=== PATIENT | male | born 1950 | race Caucasian/White ===

== ENCOUNTER 2017-05-15 18:37 | Emergency (ER) | payer MEDICARE, OTHER ==
[2017-05-15] MEDS ORDERED: Hydromorphone 1 mg/ml Ampule IM ONE (19:40)
[2017-05-15] MEDS ORDERED: Phenergan 25 MG INJ IM ONE (19:41)
[2017-05-15] MEDS ORDERED: Phenergan 25 MG INJ ONE (19:51)
[2017-05-15] MEDS ORDERED: Hydromorphone 1 mg/ml Ampule ONE (19:51)
[2017-05-15] MEDS ORDERED: DUONEB 0.5-3 MG/3 ml Neb IH ONE ×2 (21:08→21:17)
--- NOTE | 2017-05-15 21:31 | ERPHSYRPT ---
- History of Present Illness Time Seen by Provider: 05/15/17 19:20 Source: patient Exam Limitations: clinical condition Patient Subjective Stated Complaint: fell into bathtub at 1400 today..states had been drinking.. pain in right ribs and abrasion left elbow. denies LOC or hitting heqad Triage Nursing Assessment: alert and oriented, fell into bathtub at 1400 today. stqaets has been drinking aabout 12 beers. pain on palpation to right ribs.pain with breathing. lungs clear bilaterally. abrasion to left elbow.. ADY. Moss.. + RADIAL PULSE PREZSENT TO LEFT UPPER EXTREMITY. Physician History: PATIENT FELL INTO BATHROOM AT 2PM TODAY STRUCK THE RIGHT SIDE OF CHEST AGAINST BATHTUB SUSTAINED INJURY TO RIGHT SIDE OF CHEST. HAS SEVERE PAIN, WORSE UPON MOTION OF TORSO. DENIES ASSOCIATED HEAD, NECK OR BACK INJURY. LATER ADMITS TO DRINKING 12 BEERS. Occurred: this afternoon Reason for Fall: slipped Injuries/Pain Location: chest Loss of Consciousness: no loss of consciousness Severity of Pain-Max: severe Severity of Pain-Current: severe Modifying Factors: Improves With: movement Associated Symptoms (Fall): chest pain Allergies/Adverse Reactions: Penicillins Allergy (Intermediate, Verified 09/28/13 09:34) Hives Home Medications: Levothyroxine Sodium 137 mcg PO DAILY 09/28/13 [History] PANTOPRAZOLE 40 mg Tablet [Protonix 40MG Tablet] 40 mg PO DAILY 09/28/13 [ History] Pravastatin Sodium 20 mg PO HS 09/28/13 [History] Famotidine 20 mg [Pepcid 20 MG] 20 mg PO BID 11/08/13 [History] Folic Acid 1 mg PO DAILY 11/08/13 [History] Prednisone 10 mg [Deltasone 10 mg] 10 mg PO DAILY 11/08/13 [History] Valsartan [Diovan] 160 mg PO DAILY 11/08/13 [History] Naproxen Sodium 220 mg [Aleve 220 MG] 2 tab PO BID PRN 11/11/13 [History] Hx Tetanus, Diphtheria Vaccination/Date Given: No Hx Influenza Vaccination/Date Given: No Hx Pneumococcal Vaccination/Date Given: No Immunizations Up to Date: No (refuses tetnus shots) - Review of Systems Constitutional: No Fever, No Chills Eyes: No Symptoms Ears, Nose, & Throat: No Symptoms Respiratory: Other (CHEST PAIN) Cardiac: Chest Pain Abdominal/Gastrointestinal: No Abdominal Pain, No Nausea, No Vomiting, No Diarrhea Genitourinary Symptoms: No Dysuria Musculoskeletal: No Back Pain, No Neck Pain - Past Medical History Pertinent Past Medical History: Yes Neurological History: No Pertinent History ENT History: No Pertinent History Cardiac History: High Cholesterol, Hypertension Respiratory History: COPD Endocrine Medical History: Hypothyroidism Musculoskeletal History: Rheumatoid Arthritis GI Medical History: GERD History: No Pertinent History Psycho-Social History: No Pertinent History Male Reproductive Disorders: No Pertinent History Other Medical History: PT DENIES HAVING ANY HEALTH PROBLEMS - Past Surgical History Past Surgical History: Yes Neuro Surgical History: No Pertinent History Cardiac: No Pertinent History Respiratory: No Pertinent History Gastrointestinal: No Pertinent History Genitourinary: No Pertinent History Musculoskeletal: Orthopedic Surgery Male Surgical History: No Pertinent History Other Surgical History: RIGHT KNEE FIX 25 YRS AGO. Left foot surgery - Social History Smoking Status: Never smoker How long have you smoked: 45 years Exposure to second hand smoke: No Drug Use: none Patient Lives Alone: No - Nursing Vital Signs Nursing Vital Signs: Initial Vital Signs Temperature 98.8 F 05/15/17 19:13 Pulse Rate 76 05/15/17 19:13 Respiratory Rate 20 05/15/17 19:13 Blood Pressure 158/99 05/15/17 19:13 O2 Sat by Pulse Oximetry 93 L 05/15/17 19:13 Pain Scale Pain Intensity 8 - Peter Coma Score Best Eye Response ([place]): (4) open spontaneously Best Verbal Response (Peter): (5) oriented Best Motor Response (Peter): (6) obeys commands Peter Total: 15 - Physical Exam General Appearance: mild distress Head Injury: no evidence of injury Eye Exam: PERRL/EOMI ENT Exam: airway nml Neck Exam: supple, trachea midline, full range of motion, other (NONTENDER) Respiratory/Chest Exam: chest tenderness, normal breath sounds, other (MARKED TENDERNESS RIGHT LATERAL RIBS 5 TH TO 10TH , NO CREPITUS OR ECCHYMSOSI) Cardiovascular Exam: normal heart sounds Gastrointestinal Exam: soft, normal bowel sounds (NONTENDER) SpO2: 92 Oxygen Delivery: Room Air - Radiology Exams Right Ribs X-ray Interpretation: Interpreted by me (NO EVIDENCE OF FRACTURE) Chest X-ray Interpretation: Interpreted by me, Negative, No Pneumothorax Ordered Tests: Active Orders 24 hr Category Date Time Status CHEST 2 VIEWS (PA AND LAT) Stat Exams 05/15/17 19:40 Taken RIBS UNILATERAL Stat Exams 05/15/17 19:38 Taken Incentive Spirometry Assessmen QID RT 05/15/17 22:21 Completed Respiratory Nebulizer STAT RT 05/15/17 21:08 Completed Medication Summary Discontinued Medications Generic Name Dose Route Start Last Admin Trade Name Freq PRN Reason Stop Dose Admin Albuterol/Ipratropium 3 ml 05/15/17 21:08 05/15/17 21:20 Duoneb 0.5-3 Mg/3 Ml Neb IH 05/15/17 21:09 3 ml STAT ONE Administration Albuterol/Ipratropium Confirm 05/15/17 21:17 Duoneb 0.5-3 Mg/3 Ml Neb Administered 05/15/17 21:18 Dose 3 ml IH .STK-MED ONE Hydromorphone HCl 2 mg 05/15/17 19:40 05/15/17 19:55 Hydromorphone 1 Mg/Ml Ampule IM 05/15/17 19:41 2 mg STAT ONE Administration Hydromorphone HCl Confirm 05/15/17 19:51 Hydromorphone 1 Mg/Ml Ampule Administered 05/15/17 19:52 Dose 2 mg .ROUTE .STK-MED ONE Promethazine HCl 12.5 mg 05/15/17 19:41 05/15/17 19:54 Phenergan 25 Mg Inj IM 05/15/17 19:42 12.5 mg STAT ONE Administration Promethazine HCl Confirm 05/15/17 19:51 Phenergan 25 Mg Inj Administered 05/15/17 19:52 Dose 25 mg .ROUTE .STK-MED ONE - Progress Progress Note: 05/15/17 23:10 ADMINISTERED DILAUDID 2MG/PHENERGAN 12.5MG IM - Departure Time of Disposition: 23:10 Departure Disposition: Home Clinical Impression: RIGHT CHEST WALL CONTUSIONS Condition: Stable Critical Care Time: No Referrals: ASHIA LUNDBERG MD [Primary Care Provider] - Additional Instructions: USE YOUR INCENTIVE SPIROMETRY EVERY 4 HOURS FOR AWAKE, NORCO 10/325 EVERY 4 HOURS FOR PAIN. RETURN TO EMERGENCY FOR INCREASING SHORTNESS OF BREATH OR PAIN DISCOMFORT. Prescriptions: Hydrocodone/APAP 10/325 mg [[place] 10/325 MG Tablet] 1 tab PO Q6H PRN PRN # 15 tablet PRN Reason: Pain
[2017-05-15] MEDS ORDERED: NORCO 5/325 MG PO ONE (23:15)
[2017-05-15] MEDS ORDERED: NORCO 5/325 MG ONE (23:18)
[2017-05-15 23:31] VITALS: BP 140/76; PULSE 74; O2SAT 88
--- NOTE | 2017-05-16 09:18 | XRAY ---
Indication: Right-sided chest pain following fall. Comparison: October 16, 2013. PA/lateral chest again hyperinflated and clear with incidental scattered calcified granulomas. Minimal left base fibrosis/scarring. Heart is not enlarged. Bony thorax intact again with minimal degenerative changes. Impression: Nonacute hyperinflated chest with chronic features.
--- NOTE | 2017-05-16 09:18 | XRAY ---
Indication: Pain following fall. Comparison: None 2 views of the right ribs demonstrates scattered calcified pulmonary/hilar granulomas. No other bony, articular, or soft tissue abnormalities.
== END 2017-05-15 23:30 ==
LOC: ED 18:37
DX: S20.211A Contusion of right front wall of thorax, initial encounter (principal); W18.2XXA Fall in (into) shower or empty bathtub, initial encounter; Y93.E1 Activity, personal bathing and showering; S50.312A Abrasion of left elbow, initial encounter; R07.81 Pleurodynia; Z79.899 Other long term (current) drug therapy
CPT/HCPCS: 71020; 71100; 94640; 96372; 99283; 99284; J1170; J2550; A9270-GY

== ENCOUNTER 2018-02-22 06:40 | Observation (INO) | payer MEDICARE, OTHER ==
[2018-02-22] MEDS ORDERED: BABY ASPIRIN 81 MG CHEW PO ONE (06:43)
--- NOTE | 2018-02-22 06:54 | ERPHSYRPT ---
<JAROD DANG - Last Filed: 02/22/18 07:02> - History of Present Illness Time Seen by Provider: 02/22/18 06:45 Historian: patient Exam Limitations: no limitations Physician History: 68 y/o hypothyroid white male with h/o htn, copd, high cholesterol and gerd presents with 4 day h/o nonradiating central substernal cp described as a tightness and pressure. told he has had a heart attack in the past. pain not improved and worsening. Timing/Duration: day(s) (4) Activities at Onset: other (routine daily activities) Quality: fullness, pressure, tightness Location: substernal, central Chest Pain Radiation: no radiation Severity of Pain-Max: moderate Severity of Pain-Current: mild (mild to mod) Modifying Factors: Improves With: nothing Associated Symptoms: nausea, No vomiting, No palpitations, No abdominal pain, No shortness of breath, No cough Prior Chest Pain/Cardiac Workup: no prior cardiac workup Nitro Today/Relief: no nitro taken today Aspirin Treatment Today: no aspirin today Allergies/Adverse Reactions: Penicillins Allergy (Intermediate, Verified 09/28/13 09:34) Hives Home Medications: Levothyroxine Sodium 100 mcg PO DAILY 09/28/13 [History] Pravastatin Sodium 40 mg PO HS 09/28/13 [History] Alprazolam 0.5 mg [xanAX 0.5 MG] 0.5 mg PO DAILY 02/22/18 [History] Metoprolol Succinate 25 mg Xl* [Toprol-Xl 25MG Tablets] 12.5 mg PO DAILY 09/10 [History] Tadalafil [Cialis] 5 mg PO DAILY 02/22/18 [History] Hx Tetanus, Diphtheria Vaccination/Date Given: No Hx Influenza Vaccination/Date Given: No Hx Pneumococcal Vaccination/Date Given: No - Review of Systems Constitutional: No Symptoms, No Fever, No Chills Eyes: No Symptoms Ears, Nose, & Throat: No Symptoms, Ear Pain Respiratory: No Symptoms, No Cough, No Dyspnea, No Dyspnea on Exertion (JOHN), No Stridor, No Wheezing Cardiac: Chest Pain, No Palpitations, No Syncope Abdominal/Gastrointestinal: Nausea, No Abdominal Pain, No Vomiting, No Diarrhea Genitourinary Symptoms: No Symptoms, No Dysuria, No Frequency, No Hematuria Musculoskeletal: No Symptoms Skin: No Symptoms Neurological: No Symptoms, No Dizziness, No Focal Weakness, No Gait Changes Psychological: No Symptoms Endocrine: No Symptoms Hematologic/Lymphatic: No Symptoms Immunological/Allergic: No Symptoms All Other Systems: Reviewed and Negative - Past Medical History Pertinent Past Medical History: Yes Neurological History: No Pertinent History ENT History: No Pertinent History Cardiac History: High Cholesterol, Hypertension Respiratory History: COPD Endocrine Medical History: Hypothyroidism Musculoskeletal History: Rheumatoid Arthritis GI Medical History: GERD History: No Pertinent History Psycho-Social History: No Pertinent History Male Reproductive Disorders: No Pertinent History Other Medical History: PT DENIES HAVING ANY HEALTH PROBLEMS - Past Surgical History Past Surgical History: Yes Neuro Surgical History: No Pertinent History Cardiac: No Pertinent History Respiratory: No Pertinent History Gastrointestinal: No Pertinent History Genitourinary: No Pertinent History Musculoskeletal: Orthopedic Surgery Male Surgical History: No Pertinent History Other Surgical History: RIGHT KNEE FIX 25 YRS AGO. Left foot surgery - Social History Smoking Status: Never smoker How long have you smoked: 45 years Exposure to second hand smoke: No Drug Use: none Patient Lives Alone: No - Nursing Vital Signs Nursing Vital Signs: Initial Vital Signs Temperature 97.5 F 02/22/18 06:41 Pulse Rate 78 02/22/18 06:41 Respiratory Rate 20 02/22/18 06:41 Blood Pressure 174/84 02/22/18 06:41 O2 Sat by Pulse Oximetry 97 02/22/18 06:41 Pain Scale Pain Intensity 2 - Physical Exam General Appearance: mild distress, alert, anxiety Eye Exam: PERRL/EOMI, eyes nml inspection Ears, Nose, Throat Exam: normal ENT inspection Neck Exam: normal inspection, non-tender, supple, full range of motion Respiratory Exam: normal breath sounds, chest tenderness, lungs clear, airway intact, No respiratory distress, No diminished breath sounds, No wheezing, No stridor Cardiovascular Exam: regular rate/rhythm, normal heart sounds, normal peripheral pulses Gastrointestinal/Abdomen Exam: soft, normal bowel sounds, No tenderness, No guarding, No rebound Back Exam: normal inspection, normal range of motion, No vertebral tenderness Extremity Exam: normal inspection, normal range of motion, pelvis stable Neurologic Exam: alert, oriented x 3, cooperative, i&c tech II-XII nml as tested, normal mood/affect, nml cerebellar function, nml station & gait Skin Exam: normal color, warm, dry Lymphatic Exam: No adenopathy SpO2 Interpretation: normal Oxygen Delivery: Room Air - Course Nursing assessment & vital signs reviewed: Yes EKG Interpreted by Me: RATE (75), Sinus Rhythm, NORMAL AXIS, NORMAL INTERVALS, NORMAL QRS, NORMAL ST-T Ordered Tests: Active Orders 24 hr Category Date Time Status Extender STAT Care 02/22/18 06:44 Active EKG-ER Only STAT Care 02/22/18 06:43 Active IV Insertion STAT Care 02/22/18 06:43 Active Oxygen-ED Only NASAL CANNULA 2 lpm Care 02/22/18 06:43 Active Pulse Oximetry (ED) STAT Care 02/22/18 06:43 Active CHEST 1 VIEW (PORTABLE) Stat Exams 02/22/18 06:44 Completed AMYLASE Stat Lab 02/22/18 07:25 Completed CBC W DIFF Stat Lab 02/22/18 06:55 Completed CMP Stat Lab 02/22/18 06:55 Completed LIPASE Stat Lab 02/22/18 07:25 Completed Manual Differential NC Stat Lab 02/22/18 06:55 Completed NT PRO BNP Stat Lab 02/22/18 06:55 Completed PROTIME WITH INR Stat Lab 02/22/18 06:55 Completed TROPONIN Q3H Lab 02/22/18 06:55 Completed TROPONIN Q3H Lab 02/22/18 09:45 Ordered TROPONIN Q3H Lab 02/22/18 12:45 Ordered TROPONIN Q3H Lab 02/22/18 15:45 Ordered TROPONIN Q3H Lab 02/22/18 18:45 Ordered Transfer Order Routine Transfer 02/22/18 Ordered Medication Summary Discontinued Medications Generic Name Dose Route Start Last Admin Trade Name Josiane PRN Reason Stop Dose Admin Aspirin 324 mg 02/22/18 06:43 02/22/18 07:01 Baby Aspirin 81 Mg Chew PO 02/22/18 06:44 324 mg STAT ONE Administration Aspirin Confirm 02/22/18 06:58 Baby Aspirin 81 Mg Chew Administered 02/22/18 06:59 Dose 243 mg .ROUTE .STK-MED ONE Nitroglycerin 0.4 mg 02/22/18 06:57 02/22/18 07:01 Nitrostat 0.4 Mg (Ed) SL 02/22/18 06:58 0.4 mg STAT ONE Administration Nitroglycerin Confirm 08/02/18 06:58 Nitrostat 0.4 Mg (Ed) Administered 02/22/18 06:59 Dose 0.4 mg SL .STK-MED ONE Ondansetron HCl 4 mg 02/22/18 07:25 02/22/18 07:47 Zofran 4 Mg/2 Ml Vial IV 02/22/18 07:26 4 mg STAT ONE Administration Ondansetron HCl Confirm 02/22/18 07:47 Zofran 4 Mg/2 Ml Vial Administered 02/22/18 07:48 Dose 4 mg .ROUTE .STK-MED ONE Lab/Rad Data: Laboratory Result Diagrams 02/22/18 06:55 02/22/18 06:55 Laboratory Results 02/22/18 02/22/18 02/22/18 Range/Units 07:25 06:55 06:55 WBC (4.0-10.5) K/mm3 RBC (4.1-5.6) M/mm3 Hgb (12.5-18.0) gm/dl Hct (42-50) % MCV (78-100) fl MCH (26-32) pg MCHC (32-36) g/dl RDW (11.5-14.0) % Plt Count (150-450) K/mm3 MPV (6-9.5) fl Gran % (36.0-66.0) % Eos # (Auto) (0-0.5) Absolute Lymphs (auto) (1.0-4.6) Absolute Monos (auto) (0.0-1.3) Lymphocytes % (24.0-44.0) % Monocytes % (0.0-12.0) % Eosinophils % (0.00-5.0) % Basophils % (0.0-0.4) % Absolute Granulocytes (1.4-6.9) Segmented Neutrophils (36.-66.) % Lymphocytes (Manual) (24-44) % Monocytes (Manual) (0.0-12.0) % Basophils # (0-0.4) Platelet Estimate (NORMAL) RBC Morphology PT 12.2 (8.83-12.87) SECONDS INR 1.05 (0.8-3.0) Sodium (137-145) mmol/L Potassium (3.5-5.1) mmol/L Chloride (98-107) mmol/L Carbon Dioxide (22-30) mmol/L Anion Gap (5-15) MEQ/L BUN (9-20) mg/dL Creatinine (0.66-1.25) mg/dL Estimated GFR ML/MIN Glucose (74-106) mg/dL Calcium (8.4-10.2) mg/dL Total Bilirubin (0.2-1.3) mg/dL AST (17-59) U/L ALT (0-50) U/L Alkaline Phosphatase (38-126) U/L Troponin I < 0.012 (0.000-0.034) ng/mL NT-Pro-B Natriuret Pep (0-900) pg/mL Serum Total Protein (6.3-8.2) g/dL Albumin (3.5-5.0) g/dL Amylase 70 (30-110) U/L Lipase 84 (23-300) U/L 02/22/18 02/22/18 Range/Units 06:55 06:55 WBC 7.6 (4.0-10.5) K/mm3 RBC 4.69 (4.1-5.6) M/mm3 Hgb 14.9 (12.5-18.0) gm/dl Hct 45.7 (42-50) % MCV 97.4 (78-100) fl MCH 31.8 (26-32) pg MCHC 32.6 (32-36) g/dl RDW 13.6 (11.5-14.0) % Plt Count 303 (150-450) K/mm3 MPV 10.3 H (6-9.5) fl Gran % 64.6 (36.0-66.0) % Eos # (Auto) 0.28 (0-0.5) Absolute Lymphs (auto) 1.68 (1.0-4.6) Absolute Monos (auto) 0.72 (0.0-1.3) Lymphocytes % 22.0 L (24.0-44.0) % Monocytes % 9.4 (0.0-12.0) % Eosinophils % 3.7 (0.00-5.0) % Basophils % 0.3 (0.0-0.4) % Absolute Granulocytes 4.93 (1.4-6.9) Segmented Neutrophils 76 H (36.-66.) % Lymphocytes (Manual) 17 L (24-44) % Monocytes (Manual) 7 (0.0-12.0) % Basophils # 0.02 (0-0.4) Platelet Estimate NORMAL (NORMAL) RBC Morphology NORMAL PT (8.83-12.87) SECONDS INR (0.8-3.0) Sodium 143 (137-145) mmol/L Potassium 3.7 (3.5-5.1) mmol/L Chloride 106 (98-107) mmol/L Carbon Dioxide 27 (22-30) mmol/L Anion Gap 14.3 (5-15) MEQ/L BUN 12 (9-20) mg/dL Creatinine 1.00 (0.66-1.25) mg/dL Estimated GFR > 60.0 ML/MIN Glucose 111 H (74-106) mg/dL Calcium 9.1 (8.4-10.2) mg/dL Total Bilirubin 1.10 (0.2-1.3) mg/dL AST 19 (17-59) U/L ALT 13 (0-50) U/L Alkaline Phosphatase 68 (38-126) U/L Troponin I (0.000-0.034) ng/mL NT-Pro-B Natriuret Pep 179 (0-900) pg/mL Serum Total Protein 7.1 (6.3-8.2) g/dL Albumin 4.1 (3.5-5.0) g/dL Amylase (30-110) U/L Lipase (23-300) U/L - Progress Progress Note: 02/22/18 07:03 i have discussed pt hx and condition and transferred care to dr kaplan - Departure Clinical Impression: Chest pain, rule out acute myocardial infarction Chest pain Qualifiers: Chest pain type: unspecified Qualified Code(s): R07.9 - Chest pain, unspecified Condition: Fair Referrals: ASHIA LUNDBERG MD [Primary Care Provider] - <YANETH CEDENO - Last Filed: 02/22/18 08:32> - Radiology Exams Chest X-ray Interpretation: Discussed w/ radiologist (chest x-ray: Impression: 1. No airspace infiltrates to suggest pneumonia, heart failure, or other acute cardiopulmonary disease is seen. 2. Hyperinflation of the lungs suggestive of COPD. Also some mild bullous changes within the lung apices right greater than left are suspected 3.scattered bilateral calcified granulomas consistent with old healed granulomatous disease. This appears unchanged.) - Progress Progress: improved Air Movement: fair Progress Note: 02/22/18 07:20 This is a 68-year-old white male with history of hyperlipidemia high blood pressure COPD hypothyroidism rheumatoid arthritis and GERD Patient arrives with complaint of 4 days of nonradiating chest pain tightness in the anterior sternal region he states he's had some nausea, of but no shortness of breath States the pain has been intermittent however this morning he woke up around 5: 30 he felt like he had a pressure on the anterior chest whichhe felt was severe he presented To the emergency room and was initially seen by Dr. Dang patient was given nitroglycerin 2 and given aspirin 324 mg He states he is feeling better he states is not having pain at this time but he is having nausea Past medical history includes hyperlipidemia, high blood pressure, hypothyroidism, rheumatoid arthritis, GERD he states that he has been told by Dr. Vital that he had had a heart attack in the past based on studies he had done. Past surgical history includes right knee surgery left foot surgery, left hand surgery Social history former smoker denies alcohol or tobacco use Physical examination well-developed well-nourished white male he is alert oriented 3 pleasant and cooperative to examination. Head is atraumatic normocephalic. Eyes PERRLA EOMI fundi are unremarkable. Ears TMs are intact bilaterally. Nose clear. Throat clear. Neck supple full range of motion. Lungs clear to auscultation breath sounds equal bilaterally. Heart regular rate and rhythm without murmur. Abdomen soft nontender nondistended positive bowel sounds negative rebound negative hepatosplenomegaly negative masses. Extremities full range of motion pulse equal symmetrical 2 over 4. Neuro cranial nerves II through XII are intact DTRs symmetrical 2 over 4 [place] Coma Scale is 15. Patient's EKG sinus rhythm at 75 bpm normal axis poor anterior R-wave progression no acute ST or T wave changes are noted. Labs including chest x-ray CBC CMP troponin are pending. Will add amylase and lipase. Will give patient Zofran for his nausea. 02/22/18 07:53 Patient's troponin within normal limits chemistry essentially normal CBC essentially normal chest x-ray no acute changes Patient pain-free at this time blood pressure is improved at 138/89. I've discussed the patient's case with Dr. Lundberg will place on observation telemetry diagnosis chest pain rule out [place]. Will obtain serial troponins - Departure Time of Disposition: 07:54 Departure Disposition: Observation Critical Care Time: No
[2018-02-22] MEDS ORDERED: Nitrostat 0.4 MG (ED) SL ONE ×2 (06:57→06:58)
[2018-02-22] MEDS ORDERED: BABY ASPIRIN 81 MG CHEW ONE (06:58)
[2018-02-22 07:02] LABS: BASOPHIL % 0.3 % (0.0-0.4); Basophil (Absolute #) 0.02 (0-0.4); Eosinophil % 3.7 % (0.00-5.0); Eosinophil (Absolute #) 0.28 (0-0.5); Granulocyte Absolute (ANC) 4.93 (1.4-6.9); Granulocytes % 64.6 % (36.0-66.0); Hematocrit 45.7 % (42-50); Hemoglobin 14.9 gm/dl (12.5-18.0); Lymphocyte (Absolute #) 1.68 (1.0-4.6); Mean Cell Volume 97.4 fl (78-100); Mean Corpuscular Hemoglobin 31.8 pg (26-32); Mean Corpuscular Hgb Concent. 32.6 g/dl (32-36); Mean Platelet Volume 10.3 fl (6-9.5); Monocyte (Absolute #) 0.72 (0.0-1.3); Monocytes % 9.4 % (0.0-12.0); Platelet Count 303 K/mm3 (150-450); Red Blood Count 4.69 M/mm3 (4.1-5.6); Red Cell Distribution Width 13.6 % (11.5-14.0); White Blood Count 7.6 K/mm3 (4.0-10.5)
[2018-02-22 07:16] LABS: INR 1.05 (0.8-3.0)
[2018-02-22] MEDS ORDERED: Zofran 4 MG/2 ML VIAL IV ONE (07:25)
[2018-02-22 07:36] LABS: ALBUMIN 4.1 g/dL (3.5-5.0); ALKALINE PHOSPHATASE 68 U/L (38-126); ANION GAP 14.3 MEQ/L (5-15); BLOOD UREA NITROGEN 12 mg/dL (9-20); CHLORIDE 106 mmol/L (98-107); Calcium 9.1 mg/dL (8.4-10.2); Carbon Dioxide 27 mmol/L (22-30); Glucose 111 mg/dL (74-106); NT PRO BNP 179 pg/mL (0-900); Potassium 3.7 mmol/L (3.5-5.1); SGOT/AST 19 U/L (17-59); SGPT/ALT 13 U/L (0-50); SODIUM 143 mmol/L (137-145); Total Protein 7.1 g/dL (6.3-8.2)
[2018-02-22] MEDS ORDERED: Zofran 4 MG/2 ML VIAL ONE (07:47)
[2018-02-22 07:48] LABS: AMYLASE 70 U/L (30-110); LIPASE 84 U/L (23-300)
[2018-02-22 08:01] LABS: Lymphocytes 17 % (24-44); Monocyte 7 % (0.0-12.0); Neutrophils 76 % (36.-66.); Total Cells Counted 100
[2018-02-22 08:02] LABS: Platelet Estimate NORMAL (NORMAL)
--- NOTE | 2018-02-22 08:29 | XRAY ---
Exam: AP portable chest film from 02/22/2018. Comparison: Two-view chest from 05/15/2017. Indication: Onset of chest pain this morning. Findings: The film was obtained in a lordotic projection. There is hyperinflation of the lung arias consistent with COPD. Scattered granulomatous calcifications are seen within the madhavi (right greater than left), subcarinal projection, and both lung bases. The findings are consistent with old healed granulomatous disease. A calcified mildly tortuous descending thoracic aorta is seen. The remainder of the madhavi and mediastinal structures appears unremarkable. Subtle skin folds are seen projected over the peripheral upper lobes. No acute air space infiltrates, vascular congestion, pneumothorax, or pleural effusion is seen. There is a relative paucity of lung markings overlying the lung apices, right greater than left, suggesting some bullous changes. No acute osseous abnormalities are seen. Impression: 1. No air space infiltrates to suggest pneumonia, heart failure, or other acute cardiopulmonary disease is seen. 2. Hyperinflation of the lungs suggestive of COPD. I also suspect some mild bullous changes within the lung apices, right greater than left. Correlate clinically. 3. Scattered bilateral calcified granulomas consistent with old healed granulomatous disease. This appears unchanged.
--- NOTE | 2018-02-22 10:21 | PCM.HP ---
History of Present Illness - Chief Complaint Chief Complaint: chest pain History of Present Illness: is a 68 year old white male with h/o htn, copd, high cholesterol and gerd presents with 4 day h/o nonradiating central substernal cp described as a tightness and pressure. told he has had a heart attack in the past. pain not improved and worsening. Timing/Duration: day(s) (4) Activities at Onset: other (routine daily activities) Quality: fullness, pressure, tightness Location: substernal, central Chest Pain Radiation: no radiation Severity of Pain-Max: moderate Severity of Pain-Current: mild (mild to mod) Modifying Factors: Improves With: nothing Associated Symptoms: nausea, No vomiting, No palpitations, No abdominal pain, No shortness of breath, No cough Prior Chest Pain/Cardiac Workup: no prior cardiac workup Nitro Today/Relief: no nitro taken today - Review of Systems Constitutional: No Fever, No Chills Eyes: No Symptoms Ears, Nose, & Throat: No Symptoms Respiratory: No Cough, No Short Of Breath Cardiac: Chest Pain, No Edema, No Syncope Abdominal/Gastrointestinal: No Abdominal Pain, No Nausea, No Vomiting, No Diarrhea Genitourinary Symptoms: No Dysuria Musculoskeletal: No Back Pain, No Neck Pain Skin: No Rash Neurological: No Dizziness, No Focal Weakness, No Sensory Changes Psychological: No Symptoms Endocrine: No Symptoms Hematologic/Lymphatic: No Symptoms Immunological/Allergic: No Symptoms Medications & Allergies Home Medications: Home Medication List Levothyroxine Sodium 100 mcg PO DAILY 09/28/13 [History Confirmed 02/22/18] Pravastatin Sodium 40 mg PO HS 09/28/13 [History Confirmed 02/22/18] Aspirin 81 mg PO DAILY #30 tablet 09/29/13 [Rx Confirmed 02/22/18] Alprazolam 0.5 mg [xanAX 0.5 MG] 0.5 mg PO HS 02/22/18 [History Confirmed 02/22/18] Metoprolol Succinate 25 mg Xl* [Toprol-Xl 25MG Tablets] 12.5 mg PO DAILY 09/10 [History Confirmed 02/22/18] Tadalafil [Cialis] 5 mg PO DAILY 02/22/18 [History Confirmed 02/22/18] Tofacitinib Citrate [Xeljanz Xr] 11 mg PO DAILY 02/22/18 [History Confirmed 09/10] Allergies/Adverse Reactions: Allergies Allergy/AdvReac Type Severity Reaction Status Date / Time Penicillins Allergy Intermediate Hives Verified 09/28/13 09:34 - Past Medical History Past Medical History: Yes Neurological History: No Pertinent History ENT History: No Pertinent History Cardiac History: High Cholesterol, Hypertension Respiratory History: COPD Endocrine Medical History: Hypothyroidism Musculoskelatal History: Rheumatoid Arthritis GI Medical History: No Pertinent History History: No Pertinent History Pyscho-Social History: No Pertinent History Male Reproductive Disorders: No Pertinent History Comment: PT DENIES HAVING ANY HEALTH PROBLEMS - Past Surgical History Past Surgical History: Yes Neuro Surgical History: No Pertinent History Cardiac History: No Pertinent History Respiratory Surgery: No Pertinent History GI Surgical History: No Pertinent History Genitourinary Surgical Hx: No Pertinent History Musculskeletal Surgical Hx: Orthopedic Surgery Male Surgical History: No Pertinent History Other Surgical History: RIGHT KNEE FIX 25 YRS AGO. Left foot surgery-hand surgery - Social History Smoking Status: Former smoker How long have you smoked: 45 years Exposure to second hand smoke: No Alcohol: None Drug Use: none - Physical Exam Vital Signs: Vital Signs - 24 hr Temp Pulse Pulse Resp BP Pulse Ox 02/22/18 08:50 45 L 18 149/81 97 02/22/18 07:58 97.8 F 54 L 16 138/89 97 02/22/18 06:43 97 02/22/18 06:41 97.5 F 76 78 20 174/84 97 Oxygen-Last 24 hours O2 Percentage 2 Liters = 28% O2 Percentage 2 Liters = 28% General Appearance: no apparent distress, alert Neurologic Exam: alert, oriented x 3, cooperative, normal mood/affect, nml cerebellar function, nml station & gait, sensation nml, No motor deficits Eye Exam: PERRL/EOMI, eyes nml inspection Ears, Nose, Throat Exam: normal ENT inspection, TMs normal, pharynx normal, moist mucous membranes Neck Exam: normal inspection, non-tender, supple, full range of motion Respiratory Exam: normal breath sounds, lungs clear, No respiratory distress Cardiovascular Exam: regular rate/rhythm, normal heart sounds, normal peripheral pulses Gastrointestinal/Abdomen Exam: soft, normal bowel sounds, No tenderness, No mass Back Exam: normal inspection, normal range of motion, No CVA tenderness, No vertebral tenderness Extremity Exam: normal inspection, normal range of motion, pelvis stable Skin Exam: normal color, warm, dry, No rash Lymphatic Exam: No adenopathy Results - Labs Lab/Micro Results: Lab Results-Last 24 Hours 02/22/18 02/22/18 02/22/18 Range/Units 06:55 06:55 06:55 WBC 7.6 (4.0-10.5) K/mm3 RBC 4.69 (4.1-5.6) M/mm3 Hgb 14.9 (12.5-18.0) gm/dl Hct 45.7 (42-50) % MCV 97.4 (78-100) fl MCH 31.8 (26-32) pg MCHC 32.6 (32-36) g/dl RDW 13.6 (11.5-14.0) % Plt Count 303 (150-450) K/mm3 MPV 10.3 H (6-9.5) fl Gran % 64.6 (36.0-66.0) % Eos # (Auto) 0.28 (0-0.5) Absolute Lymphs (auto) 1.68 (1.0-4.6) Absolute Monos (auto) 0.72 (0.0-1.3) Lymphocytes % 22.0 L (24.0-44.0) % Monocytes % 9.4 (0.0-12.0) % Eosinophils % 3.7 (0.00-5.0) % Basophils % 0.3 (0.0-0.4) % Absolute Granulocytes 4.93 (1.4-6.9) Segmented Neutrophils 76 H (36.-66.) % Lymphocytes (Manual) 17 L (24-44) % Monocytes (Manual) 7 (0.0-12.0) % Basophils # 0.02 (0-0.4) Platelet Estimate NORMAL (NORMAL) RBC Morphology NORMAL PT 12.2 (8.83-12.87) SECONDS INR 1.05 (0.8-3.0) Sodium 143 (137-145) mmol/L Potassium 3.7 (3.5-5.1) mmol/L Chloride 106 (98-107) mmol/L Carbon Dioxide 27 (22-30) mmol/L Anion Gap 14.3 (5-15) MEQ/L BUN 12 (9-20) mg/dL Creatinine 1.00 (0.66-1.25) mg/dL Estimated GFR > 60.0 ML/MIN Glucose 111 H (74-106) mg/dL Calcium 9.1 (8.4-10.2) mg/dL Total Bilirubin 1.10 (0.2-1.3) mg/dL AST 19 (17-59) U/L ALT 13 (0-50) U/L Alkaline Phosphatase 68 (38-126) U/L Troponin I (0.000-0.034) ng/mL NT-Pro-B Natriuret Pep 179 (0-900) pg/mL Serum Total Protein 7.1 (6.3-8.2) g/dL Albumin 4.1 (3.5-5.0) g/dL Amylase (30-110) U/L Lipase (23-300) U/L 02/22/18 02/22/18 Range/Units 06:55 07:25 WBC (4.0-10.5) K/mm3 RBC (4.1-5.6) M/mm3 Hgb (12.5-18.0) gm/dl Hct (42-50) % MCV (78-100) fl MCH (26-32) pg MCHC (32-36) g/dl RDW (11.5-14.0) % Plt Count (150-450) K/mm3 MPV (6-9.5) fl Gran % (36.0-66.0) % Eos # (Auto) (0-0.5) Absolute Lymphs (auto) (1.0-4.6) Absolute Monos (auto) (0.0-1.3) Lymphocytes % (24.0-44.0) % Monocytes % (0.0-12.0) % Eosinophils % (0.00-5.0) % Basophils % (0.0-0.4) % Absolute Granulocytes (1.4-6.9) Segmented Neutrophils (36.-66.) % Lymphocytes (Manual) (24-44) % Monocytes (Manual) (0.0-12.0) % Basophils # (0-0.4) Platelet Estimate (NORMAL) RBC Morphology PT (8.83-12.87) SECONDS INR (0.8-3.0) Sodium (137-145) mmol/L Potassium (3.5-5.1) mmol/L Chloride (98-107) mmol/L Carbon Dioxide (22-30) mmol/L Anion Gap (5-15) MEQ/L BUN (9-20) mg/dL Creatinine (0.66-1.25) mg/dL Estimated GFR ML/MIN Glucose (74-106) mg/dL Calcium (8.4-10.2) mg/dL Total Bilirubin (0.2-1.3) mg/dL AST (17-59) U/L ALT (0-50) U/L Alkaline Phosphatase (38-126) U/L Troponin I < 0.012 (0.000-0.034) ng/mL NT-Pro-B Natriuret Pep (0-900) pg/mL Serum Total Protein (6.3-8.2) g/dL Albumin (3.5-5.0) g/dL Amylase 70 (30-110) U/L Lipase 84 (23-300) U/L - Radiology Impressions Radiology Exams & Impressions: Radiology Procedures Category Date Time Status CHEST 1 VIEW (PORTABLE) Stat Exams 02/22/18 06:44 Completed Assessment/Plan (1) Chest pain, rule out acute myocardial infarction Current Visit: Yes Status: Acute Assessment & Plan: Chief Complaint Diagnosis chest pain Allergies Allergy/AdvReac Type Severity Reaction Status Date / Time Penicillins Allergy Intermediate Hives Verified 09/28/13 09:34 Vital Signs (Last 24 hours) Temp Pulse Pulse Resp BP Pulse Ox 02/22/18 08:50 45 L 18 149/81 97 02/22/18 07:58 97.8 F 54 L 16 138/89 97 02/22/18 06:43 97 02/22/18 06:41 97.5 F 76 78 20 174/84 97 Home Medications Medication Instructions Recorded Confirmed Last Taken Type Alprazolam 0.5 mg [xanAX 0.5 0.5 mg PO HS 02/22/18 02/22/18 02/22/18 History MG] 0.5 Metoprolol Succinate 25 mg Xl* 12.5 mg PO DAILY 02/22/18 02/22/18 02/22/18 History [Toprol-Xl 25MG Tablets] 12.5 Tadalafil [Cialis] 5 mg PO DAILY 02/22/18 02/22/18 01/23/18 History 5 Tofacitinib Citrate [Xeljanz Xr] 11 mg PO DAILY 02/22/18 02/22/18 02/22/18 History Current Medications Generic Name Dose Route Start Last Admin Trade Name Josiane PRN Reason Stop Dose Admin Aspirin 325 mg 02/23/18 10:00 Ecotrin 325 Mg PO 03/25/18 09:59 QAM REHAN Methylprednisolone Sodium Succinate 40 mg 02/22/18 09:30 Solu-Medrol 40 Mg IV 03/24/18 09:29 Q8HT [facility] Discontinued Medications Generic Name Dose Route Start Last Admin Trade Name Josiane PRN Reason Stop Dose Admin Aspirin 324 mg 02/22/18 06:43 02/22/18 07:01 Baby Aspirin 81 Mg Chew PO 02/22/18 06:44 324 mg STAT ONE Administration Aspirin Confirm 02/22/18 06:58 Baby Aspirin 81 Mg Chew Administered 02/22/18 06:59 Dose 243 mg .ROUTE .STK-MED ONE Nitroglycerin 0.4 mg 02/22/18 06:57 02/22/18 07:01 Nitrostat 0.4 Mg (Ed) SL 02/22/18 06:58 0.4 mg STAT ONE Administration Nitroglycerin Confirm 02/22/18 06:58 Nitrostat 0.4 Mg (Ed) Administered 02/22/18 06:59 Dose 0.4 mg SL .STK-MED ONE Ondansetron HCl 4 mg 02/22/18 07:25 02/22/18 07:47 Zofran 4 Mg/2 Ml Vial IV 02/22/18 07:26 4 mg STAT ONE Administration Ondansetron HCl Confirm 02/22/18 07:47 Zofran 4 Mg/2 Ml Vial Administered 02/22/18 07:48 Dose 4 mg .ROUTE .STK-MED ONE Intake & Output (Last 24 hours) 02/19/18 02/20/18 02/21/18 02/22/18 11:59 11:59 11:59 11:59 Intake Total 240 Balance 240 Weight 63.8 kg Laboratory Results (Last 24 hours) 02/22/18 02/22/18 02/22/18 07:25 06:55 06:55 WBC RBC Hgb Hct MCV MCH MCHC RDW Plt Count MPV Gran % Eos # (Auto) Absolute Lymphs (auto) Absolute Monos (auto) Lymphocytes % Monocytes % Eosinophils % Basophils % Absolute Granulocytes Segmented Neutrophils Lymphocytes (Manual) Monocytes (Manual) Basophils # Platelet Estimate RBC Morphology PT 12.2 INR 1.05 Sodium Potassium Chloride Carbon Dioxide Anion Gap BUN Creatinine Estimated GFR Glucose Calcium Total Bilirubin AST ALT Alkaline Phosphatase Troponin I < 0.012 NT-Pro-B Natriuret Pep Serum Total Protein Albumin Amylase 70 Lipase 84 02/22/18 02/22/18 06:55 06:55 WBC 7.6 RBC 4.69 Hgb 14.9 Hct 45.7 MCV 97.4 MCH 31.8 MCHC 32.6 RDW 13.6 Plt Count 303 MPV 10.3 H Gran % 64.6 Eos # (Auto) 0.28 Absolute Lymphs (auto) 1.68 Absolute Monos (auto) 0.72 Lymphocytes % 22.0 L Monocytes % 9.4 Eosinophils % 3.7 Basophils % 0.3 Absolute Granulocytes 4.93 Segmented Neutrophils 76 H Lymphocytes (Manual) 17 L Monocytes (Manual) 7 Basophils # 0.02 Platelet Estimate NORMAL RBC Morphology NORMAL PT INR Sodium 143 Potassium 3.7 Chloride 106 Carbon Dioxide 27 Anion Gap 14.3 BUN 12 Creatinine 1.00 Estimated GFR > 60.0 Glucose 111 H Calcium 9.1 Total Bilirubin 1.10 AST 19 ALT 13 Alkaline Phosphatase 68 Troponin I NT-Pro-B Natriuret Pep 179 Serum Total Protein 7.1 Albumin 4.1 Amylase Lipase Orders (Last 24 hours) Category Date Time Status Bedrest with BRP/BSC ROUTINE Activity 02/22/18 08:45 Active Call Admit Doctor for Orders ON ADMISSION Care 02/22/18 08:45 Active Photo Checker STAT Care 02/22/18 06:44 Completed Code Status Order ROUTINE Care 02/22/18 08:45 Active EKG-ER Only STAT Care 02/22/18 06:43 Completed IV Care Q6H Care 02/22/18 08:45 Active IV Insertion STAT Care 02/22/18 06:43 Completed Oxygen-ED Only NASAL CANNULA 2 lpm Care 02/22/18 06:[address] in Observation ROUTINE Care 02/22/18 08:45 Active Pulse Oximetry (ED) STAT Care 02/22/18 06:43 Completed Telemetry Q4H Care 02/22/18 08:45 Active Weight,Daily 0600 Care 02/22/18 08:45 Active Cardiac Diet Diet 02/22/18 Lunch Active Regular Diet Diet 02/22/18 Lunch Active CHEST 1 VIEW (PORTABLE) Stat Exams 02/22/18 06:44 Completed AMYLASE Stat Lab 02/22/18 07:25 Completed CBC W DIFF AM.LAB Lab 02/23/18 04:00 Ordered CBC W DIFF Stat Lab 02/22/18 06:55 Completed CMP AM.LAB Lab 02/23/18 04:00 Ordered CMP Stat Lab 02/22/18 06:55 Completed LIPASE Stat Lab 02/22/18 07:25 Completed Manual Differential NC Stat Lab 02/22/18 06:55 Completed NT PRO BNP Stat Lab 02/22/18 06:55 Completed PROTIME WITH INR Stat Lab 02/22/18 06:55 Completed TROPONIN Q3H Lab 02/22/18 06:55 Completed TROPONIN Q3H Lab 02/22/18 09:53 Received TROPONIN Q3H Lab 02/22/18 12:45 Ordered TROPONIN Q3H Lab 02/22/18 15:45 Ordered TROPONIN Q3H Lab 02/22/18 18:45 Ordered Aspirin 81 gm Chew [Baby Aspirin 81 mg Chew] Med 02/22/18 06:58 Discontinued 243 mg .ROUTE .STK-MED ONE Aspirin 81 gm Chew [Baby Aspirin 81 mg Chew] Med 02/22/18 06:43 Discontinued 324 mg PO STAT ONE Aspirin EC 325 mg [Ecotrin 325 MG] Med 02/23/18 10:00 Active 325 mg PO QAM Methylprednisolone Sod Suc 40M [solu-MEDROL 40 MG] Med 02/22/18 09:30 Active 40 mg IV Q8HT Nitroglycerin 0.4 mg (Ed) [Nitrostat 0.4 MG (ED)] Med 02/22/18 06:58 Discontinued 0.4 mg SL .STK-MED ONE Nitroglycerin 0.4 mg (Ed) [Nitrostat 0.4 MG (ED)] Med 02/22/18 06:57 Discontinued 0.4 mg SL STAT ONE Ondansetron HCl 4 mg/2 ml [Zofran 4 MG/2 ML VIAL] Med 02/22/18 07:47 Discontinued 4 mg .ROUTE .STK-MED ONE Ondansetron HCl 4 mg/2 ml [Zofran 4 MG/2 ML VIAL] Med 02/22/18 07:25 Discontinued 4 mg IV STAT ONE Pulse Oximetry CONTINUOUS RT 02/22/18 08:45 Active Transfer Order Routine Transfer 02/22/18 Completed Code(s): R07.9 - CHEST PAIN, UNSPECIFIED (2) Rheumatoid arthritis flare Current Visit: Yes Status: Acute Code(s): M06.9 - RHEUMATOID ARTHRITIS, UNSPECIFIED
[2018-02-22] MEDS: solu-MEDROL 40 MG IV SCH ×3 (10:48→21:05)
[2018-02-22] MEDS: Zestril 5 MG PO SCH (12:52)
[2018-02-22] MEDS ORDERED: MEDICATION INTERVENTION MC SCH ×2 (13:30)
[2018-02-22] MEDS ORDERED: TYLENOL EXTRA STRENGTH 500 MG PO PRN (15:34)
[2018-02-22] MEDS ORDERED: NON-FORMULARY ITEM (Pravastatin Sodium [Pravastatin Sodium] 40 MG) PO SCH (22:00)
[2018-02-22] MEDS ORDERED: xanAX 0.5 MG PO SCH (22:00)
[2018-02-22] MEDS ORDERED: ZOCOR 20MG PO SCH (22:00)
[2018-02-23] MEDS: solu-MEDROL 40 MG IV SCH (05:53)
[2018-02-23 05:56] LABS: Hematocrit 43.1 % (42-50); Hemoglobin 13.9 gm/dl (12.5-18.0); Mean Cell Volume 99.3 fl (78-100); Mean Corpuscular Hgb Concent. 32.3 g/dl (32-36); Platelet Count 298 K/mm3 (150-450); Red Blood Count 4.34 M/mm3 (4.1-5.6); Red Cell Distribution Width 13.1 % (11.5-14.0)
[2018-02-23 06:08] LABS: ALBUMIN 3.7 g/dL (3.5-5.0); ALKALINE PHOSPHATASE 54 U/L (38-126); ANION GAP 13.5 MEQ/L (5-15); BLOOD UREA NITROGEN 12 mg/dL (9-20); CHLORIDE 104 mmol/L (98-107); Calcium 8.8 mg/dL (8.4-10.2); Carbon Dioxide 27 mmol/L (22-30); Creatinine 1 0.84 mg/dL (0.66-1.25); Glucose 218 mg/dL (74-106); SGOT/AST 15 U/L (17-59); SGPT/ALT 12 U/L (0-50); SODIUM 140 mmol/L (137-145); Total Protein 6.5 g/dL (6.3-8.2)
[2018-02-23 06:56] LABS: BAND 3 % (0.0-2.0); Lymphocytes 5 % (24-44); Monocyte 1 % (0.0-12.0); Neutrophils 91 % (36.-66.); Platelet Estimate NORMAL (NORMAL); Total Cells Counted 100
[2018-02-23 07:14] VITALS: BP 127/65; PULSE 48; O2SAT 94
[2018-02-23] MEDS: Zestril 5 MG PO SCH (09:31)
[2018-02-23] MEDS ORDERED: Ecotrin 325 MG PO SCH (10:00)
[2018-02-23] MEDS ORDERED: TOFACITINIB CITRATE 11 MG PO SCH (10:00)
[2018-02-23] MEDS ORDERED: LEVOTHYROXINE SODIUM 100 MCG PO SCH (10:00)
[2018-02-23] MEDS ORDERED: SYNTHROID 100 MCG PO SCH (10:00)
[2018-02-23] MEDS ORDERED: NON-FORMULARY ITEM (Aspirin [Aspirin] 81 MG) PO SCH ×2 (10:00)
[2018-02-23] MEDS ORDERED: TADALAFIL 5 MG PO SCH (10:00)
== END 2018-02-23 10:30 | disposition home or self-care (01) ==
LOC: ED 06:40 → MED SURG 08:34
PROVIDERS: ADMIT General Practice; ATTEND General Practice
DX: R07.89 Other chest pain (principal); M06.9 Rheumatoid arthritis, unspecified; I10 Essential (primary) hypertension; J44.9 Chronic obstructive pulmonary disease, unspecified; E78.00 Pure hypercholesterolemia, unspecified; E03.9 Hypothyroidism, unspecified; K21.9 Gastro-esophageal reflux disease without esophagitis; Z79.899 Other long term (current) drug therapy
CPT/HCPCS: 36000; 36415; 71045; 80053; 82150; 83690; 83880; 84484; 85025; 85610; 93005; 93041; 93268; 94762; 96374; 96375; 99285; J2405; J2920; A9270-GY; G0378

== ENCOUNTER 2019-06-24 16:07 | Inpatient (IN) | payer MEDICARE, OTHER ==
[2019-06-24] MEDS ORDERED: DUONEB 0.5-3 MG/3 ml Neb IH ONE (16:15)
[2019-06-24] MEDS ORDERED: TYLENOL EXTRA STRENGTH 500 MG PO PRN (17:50)
[2019-06-24] MEDS ORDERED: Xopenex 1.25 MG/0.5 ML UD NEBULE IH PRN (17:56)
[2019-06-24] MEDS ORDERED: ROCEPHIN 1 Gm-D5w 50 ml Bag** 1 G/50 ML IVPB IV ONE (18:15)
[2019-06-24] MEDS: solu-MEDROL 40 MG IV SCH (18:20)
[2019-06-24 18:51] LABS: Absolute Neutrophil Ct (ANC) 12.09 (1.4-6.9); BASOPHIL % 0.1 % (0.0-0.4); Basophil (Absolute #) 0.02 (0-0.4); Eosinophil % 0.2 % (0.00-5.0); Eosinophil (Absolute #) 0.03 (0-0.5); Hematocrit 41.4 % (42-50); Hemoglobin 13.6 gm/dl (12.5-18.0); Lymphocyte (Absolute #) 0.33 (1.0-4.6); Lymphocytes % 2.4 % (24.0-44.0); Mean Cell Volume 99.5 fl (78-100); Mean Corpuscular Hemoglobin 32.7 pg (26-32); Mean Corpuscular Hgb Concent. 32.9 g/dl (32-36); Mean Platelet Volume 10.2 fl (6-9.5); Monocyte (Absolute #) 1.23 (0.0-1.3); Neutrophil % 88.3 % (36.0-66.0); Platelet Count 249 K/mm3 (150-450); Red Blood Count 4.16 M/mm3 (4.1-5.6); White Blood Count 13.7 K/mm3 (4.0-10.5)
[2019-06-24] MEDS ORDERED: DUONEB 0.5-3 MG/3 ml Neb IH SCH (19:00)
[2019-06-24 19:03] LABS: ALKALINE PHOSPHATASE 69 U/L (38-126); ANION GAP 11.8 MEQ/L (5-15); BLOOD UREA NITROGEN 10 mg/dL (9-20); CHLORIDE 101 mmol/L (98-107); Calcium 8.4 mg/dL (8.4-10.2); Carbon Dioxide 30 mmol/L (22-30); Creatinine 1 1.11 mg/dL (0.66-1.25); Glucose 125 mg/dL (74-106); Potassium 3.8 mmol/L (3.5-5.1); SGOT/AST 24 U/L (17-59); SGPT/ALT 13 U/L (0-50); SODIUM 139 mmol/L (137-145); Total Protein 7.5 g/dL (6.3-8.2)
[2019-06-24] MEDS ORDERED: Sodium Chloride 3 ML UD NEBULES IH ONE (19:36)
[2019-06-24] MEDS: Xopenex 1.25 MG/0.5 ML UD NEBULE IH SCH (20:03)
[2019-06-24] MEDS: xanAX 0.5 MG PO SCH (21:29)
[2019-06-24] MEDS: ZOCOR 20MG PO SCH (21:30)
[2019-06-24 21:55] LABS: Slide Review 1 YES
[2019-06-24] MEDS ORDERED: Zithromax 500 MG/ 250 ML NaCl Premix 500 MG/250 ML IVPB IV SCH (22:00)
[2019-06-24 23:37] LABS: INFLUENZA A NEGATIVE (NEGATIVE); INFLUENZA B NEGATIVE (NEGATIVE); RESPIRATORY SYNCTIAL VIRUS NEGATIVE (Negative)
[2019-06-25] MEDS: solu-MEDROL 40 MG IV SCH ×3 (02:17→17:02)
[2019-06-25] MEDS ORDERED: Xopenex 1.25 MG/0.5 ML UD NEBULE IH ONE (07:12)
[2019-06-25] MEDS ORDERED: Sodium Chloride 3 ML UD NEBULES IH ONE (07:12)
[2019-06-25] MEDS: Xopenex 1.25 MG/0.5 ML UD NEBULE IH SCH ×7 (07:19→19:25)
[2019-06-25] MEDS ORDERED: MEDICATION INTERVENTION PO SCH (07:30)
--- NOTE | 2019-06-25 08:41 | XRAY ---
Indication: Cough and congestion. COPD. Comparison: February 22, 2018. Portable chest demonstrates new mild bibasilar infiltrates/atelectasis, right greater than left. Stable COPD and calcified granulomas. Heart is not enlarged. Bony thorax intact again with mild degenerative changes.
[2019-06-25] MEDS: ECOTRIN 81 MG PO SCH (09:00)
[2019-06-25] MEDS: Cozaar 50 MG PO SCH (09:00)
[2019-06-25] MEDS: Neurontin 100 MG PO SCH (09:00)
[2019-06-25] MEDS: SYNTHROID 100 MCG PO SCH (09:00)
[2019-06-25] MEDS: Toprol-Xl 25MG Tablets PO SCH (09:00)
[2019-06-25 09:27] LABS: Absolute Neutrophil Ct (ANC) 12.09 (1.4-6.9); BASOPHIL % 0.1 % (0.0-0.4); Basophil (Absolute #) 0.01 (0-0.4); Eosinophil % 0.1 % (0.00-5.0); Eosinophil (Absolute #) 0.01 (0-0.5); Hematocrit 39.7 % (42-50); Hemoglobin 13.1 gm/dl (12.5-18.0); Lymphocyte (Absolute #) 0.14 (1.0-4.6); Lymphocytes % 1.1 % (24.0-44.0); Mean Platelet Volume 10.7 fl (6-9.5); Monocytes % 1.6 % (0.0-12.0); Neutrophil % 97.1 % (36.0-66.0); Platelet Count 240 K/mm3 (150-450); Red Blood Count 3.97 M/mm3 (4.1-5.6); White Blood Count 12.5 K/mm3 (4.0-10.5)
[2019-06-25 09:33] LABS: ALBUMIN 3.9 g/dL (3.5-5.0); ALKALINE PHOSPHATASE 63 U/L (38-126); ANION GAP 13.4 MEQ/L (5-15); BLOOD UREA NITROGEN 11 mg/dL (9-20); CHLORIDE 103 mmol/L (98-107); Calcium 8.7 mg/dL (8.4-10.2); Carbon Dioxide 28 mmol/L (22-30); Creatinine 1 1.01 mg/dL (0.66-1.25); Glucose 212 mg/dL (74-106); Potassium 3.8 mmol/L (3.5-5.1); SGOT/AST 24 U/L (17-59); SGPT/ALT 16 U/L (0-50); SODIUM 141 mmol/L (137-145); Total Protein 7.3 g/dL (6.3-8.2)
[2019-06-25] MEDS ORDERED: LEVOTHYROXINE SODIUM 100 MCG PO SCH (10:00)
[2019-06-25] MEDS ORDERED: ROCEPHIN 1 Gm-D5w 50 ml Bag** 1 G/50 ML IVPB IV SCH ×2 (10:00→18:00)
[2019-06-25] MEDS ORDERED: TOFACITINIB CITRATE 11 MG PO SCH (10:00)
[2019-06-25] MEDS ORDERED: NON-FORMULARY ITEM (Aspirin [Aspirin] 81 MG) PO SCH (10:00)
[2019-06-25] MEDS: Sodium Chloride 3 ML UD NEBULES IH SCH ×2 (10:08→15:06)
--- NOTE | 2019-06-25 12:50 | PCM.NOTE ---
Date and Time: 06/25/19 1248 Subjective Assessment: c/o cough, shortness of breath is better - Review of Systems Constitutional: No Fever, No Chills Eyes: No Symptoms Ears, Nose, & Throat: No Symptoms Respiratory: Cough, Orthopnea, Short Of Breath, Wheezing Cardiac: No Chest Pain, No Edema, No Syncope Abdominal/Gastrointestinal: No Abdominal Pain, No Nausea, No Vomiting, No Diarrhea Genitourinary Symptoms: No Dysuria Musculoskeletal: No Back Pain, No Neck Pain Skin: No Rash Neurological: No Dizziness, No Focal Weakness, No Sensory Changes Psychological: No Symptoms Endocrine: No Symptoms Hematologic/Lymphatic: No Symptoms Immunological/Allergic: No Symptoms Objective Exam General Appearance: no apparent distress, alert Neurologic Exam: alert, oriented x 3, cooperative, normal mood/affect, nml cerebellar function, sensation nml, No motor deficits Skin Exam: normal color, warm, dry Eye Exam: PERRL, EOMI, eyes nml inspection Ears, Nose, Throat Exam: normal ENT inspection, pharynx normal, moist mucous membranes Neck Exam: normal inspection, non-tender, supple, full range of motion Respiratory Exam: normal breath sounds, lungs clear, No respiratory distress Cardiovascular Exam: regular rate/rhythm, normal heart sounds Gastrointestinal/Abdomen Exam: soft, No tenderness, No mass Extremity Exam: normal inspection, normal range of motion Back Exam: normal inspection, normal range of motion, No CVA tenderness, No vertebral tenderness Male Genitalia Exam: deferred Rectal Exam: deferred OBJECTIVE DATA Vital Signs: Vital Signs - 24 hr Temp Pulse Resp BP Pulse Ox 06/25/19 12:19 98.1 F 70 20 116/59 95 06/25/19 10:17 84 16 92 L 06/25/19 07:11 97.9 F 78 18 116/60 92 L 06/25/19 04:00 99 F 85 16 155/76 93 L 06/25/19 00:00 99.1 F 84 20 94/49 92 L 06/24/19 20:03 96 H 22 92 L 06/24/19 19:41 101.9 F 93 H 18 138/74 90 L 06/24/19 17:09 99.0 F 99 H 18 187/86 92 L 06/24/19 17:03 92 L 06/24/19 16:55 88 L 06/24/19 16:27 99 H 24 84 L 06/24/19 16:19 99.0 F 99 H 20 187/86 84 L Oxygen-Last 24 hours O2 Percentage 5 Liters = 40% O2 Percentage 4 Liters = 36% O2 Percentage 4 Liters = 36% O2 Percentage 4 Liters = 36% O2 Percentage 4 Liters = 36% O2 Percentage 4 Liters = 36% Pain Assessment - Last Documented Pain Intensity 4 Pain Scale Used FLACC Intake and Output: Intake & Output 06/23/19 06/24/19 06/25/19 06/26/19 11:59 11:59 11:59 11:59 Intake Total 1798 Output Total 1999 Balance -202 Weight 135 kg Lab Results: Lab Results-Last 24 Hours 06/24/19 06/24/19 06/24/19 Range/Units 18:45 18:45 19:58 WBC 13.7 H (4.0-10.5) K/mm3 RBC 4.16 (4.1-5.6) M/mm3 Hgb 13.6 (12.5-18.0) gm/dl Hct 41.4 L (42-50) % MCV 99.5 (78-100) fl MCH 32.7 H (26-32) pg MCHC 32.9 (32-36) g/dl RDW 13.0 (11.5-14.0) % Plt Count 249 (150-450) K/mm3 MPV 10.2 H (6-9.5) fl Gran % 88.3 H (36.0-66.0) % Eos # (Auto) 0.03 (0-0.5) Absolute Lymphs (auto) 0.33 L (1.0-4.6) Absolute Monos (auto) 1.23 (0.0-1.3) Lymphocytes % 2.4 L (24.0-44.0) % Monocytes % 9.0 (0.0-12.0) % Eosinophils % 0.2 (0.00-5.0) % Basophils % 0.1 (0.0-0.4) % Absolute Granulocytes 12.09 H (1.4-6.9) Basophils # 0.02 (0-0.4) Sodium 139 (137-145) mmol/L Potassium 3.8 (3.5-5.1) mmol/L Chloride 101 (98-107) mmol/L Carbon Dioxide 30 (22-30) mmol/L Anion Gap 11.8 (5-15) MEQ/L BUN 10 (9-20) mg/dL Creatinine 1.11 (0.66-1.25) mg/dL Estimated GFR > 60.0 ML/MIN Glucose 125 H (74-106) mg/dL Lactic Acid 1.8 (0.4-2.0) Calcium 8.4 (8.4-10.2) mg/dL Total Bilirubin 1.20 (0.2-1.3) mg/dL AST 24 (17-59) U/L ALT 13 (0-50) U/L Alkaline Phosphatase 69 (38-126) U/L Serum Total Protein 7.5 (6.3-8.2) g/dL Albumin 4.0 (3.5-5.0) g/dL Influenza Type A Ag (NEGATIVE) Influenza Type B Ag (NEGATIVE) RSV (PCR) (Negative) Slides for Path Review YES 06/24/19 06/25/19 06/25/19 Range/Units 21:55 09:15 09:15 WBC 12.5 H (4.0-10.5) K/mm3 RBC 3.97 L (4.1-5.6) M/mm3 Hgb 13.1 (12.5-18.0) gm/dl Hct 39.7 L (42-50) % MCV 100.0 (78-100) fl MCH 33.0 H (26-32) pg MCHC 33.0 (32-36) g/dl RDW 13.0 (11.5-14.0) % Plt Count 240 (150-450) K/mm3 MPV 10.7 H (6-9.5) fl Gran % 97.1 H (36.0-66.0) % Eos # (Auto) 0.01 (0-0.5) Absolute Lymphs (auto) 0.14 L (1.0-4.6) Absolute Monos (auto) 0.20 (0.0-1.3) Lymphocytes % 1.1 L (24.0-44.0) % Monocytes % 1.6 (0.0-12.0) % Eosinophils % 0.1 (0.00-5.0) % Basophils % 0.1 (0.0-0.4) % Absolute Granulocytes 12.09 H (1.4-6.9) Basophils # 0.01 (0-0.4) Sodium 141 (137-145) mmol/L Potassium 3.8 (3.5-5.1) mmol/L Chloride 103 (98-107) mmol/L Carbon Dioxide 28 (22-30) mmol/L Anion Gap 13.4 (5-15) MEQ/L BUN 11 (9-20) mg/dL Creatinine 1.01 (0.66-1.25) mg/dL Estimated GFR > 60.0 ML/MIN Glucose 212 H (74-106) mg/dL Lactic Acid (0.4-2.0) Calcium 8.7 (8.4-10.2) mg/dL Total Bilirubin 0.80 (0.2-1.3) mg/dL AST 24 (17-59) U/L ALT 16 (0-50) U/L Alkaline Phosphatase 63 (38-126) U/L Serum Total Protein 7.3 (6.3-8.2) g/dL Albumin 3.9 (3.5-5.0) g/dL Influenza Type A Ag NEGATIVE (NEGATIVE) Influenza Type B Ag NEGATIVE (NEGATIVE) RSV (PCR) NEGATIVE (Negative) Slides for Path Review Radiology Exams: Radiology Procedures Category Date Time Status CHEST 1 VIEW (PORTABLE) Urgent Exams 06/24/19 18:32 Completed Assessment/Plan (1) Pneumonia Current Visit: Yes Status: Acute Qualifiers: Pneumonia type: due to unspecified organism Laterality: bilateral Lung location: lower lobe of lung Qualified Code(s): J18.9 - Pneumonia, unspecified organism Assessment & Plan: Chief Complaint Diagnosis Exac COPD Allergies Allergy/AdvReac Type Severity Reaction Status Date / Time Penicillins Allergy Intermediate Hives Verified 09/28/13 09:34 Vital Signs (Last 24 hours) Temp Pulse Resp BP Pulse Ox 06/25/19 12:19 98.1 F 70 20 116/59 95 06/25/19 10:17 84 16 92 L 06/25/19 07:11 97.9 F 78 18 116/60 92 L 06/25/19 04:00 99 F 85 16 155/76 93 L 06/25/19 00:00 99.1 F 84 20 94/49 92 L 06/24/19 20:03 96 H 22 92 L 06/24/19 19:41 101.9 F 93 H 18 138/74 90 L 06/24/19 17:09 99.0 F 99 H 18 187/86 92 L 06/24/19 17:03 92 L 06/24/19 16:55 88 L 06/24/19 16:27 99 H 24 84 L 06/24/19 16:19 99.0 F 99 H 20 187/86 84 L Home Medications Medication Instructions Recorded Confirmed Last Taken Type Gabapentin 100 mg PO DAILY 06/24/19 06/24/19 06/24/19 History 100 mg Losartan Potassium 50 mg PO DAILY 06/24/19 06/24/19 06/24/19 History 50 mg Current Medications Generic Name Dose Route Start Last Admin Trade Name Freq PRN Reason Stop Dose Admin Acetaminophen 500 mg 06/24/19 17:50 06/24/19 18:17 Tylenol Extra Strength 500 Mg PO 07/24/19 17:49 500 mg Q6H PRN PRN Administration PAIN Alprazolam 0.5 mg 06/24/19 22:00 06/24/19 21:29 Xanax 0.5 Mg PO 07/24/19 21:59 0.5 mg HS REHAN Administration Aspirin 81 mg 06/25/19 10:00 06/25/19 09:00 Ecotrin 81 Mg PO 07/25/19 09:59 81 mg DAILY REHAN Administration Gabapentin 100 mg 06/25/19 10:00 06/25/19 09:00 Neurontin 100 Mg PO 07/25/19 09:59 100 mg DAILY REHAN Administration Ceftriaxone Sodium/Dextrose 1 g in 50 mls @ 100 mls/hr 06/25/19 18:00 Rocephin 1 Gm-D5w 50 Ml Bag IV 07/25/19 17:59 Q24H REHAN Azithromycin 500 mg in 250 mls @ 250 mls/hr 06/25/19 22:00 Zithromax 500 Mg/ 250 Ml Nacl Premix IV 07/24/19 21:59 QPM REHAN Levalbuterol HCl 0.63 mg 06/24/19 17:56 Xopenex 1.25 Mg/0.5 Ml Ud Nebule IH 07/24/19 17:55 PRN PRN sob Levalbuterol HCl 1.25 mg 06/25/19 07:30 06/25/19 10:08 Xopenex 1.25 Mg/0.5 Ml Ud Nebule IH 07/24/19 21:59 1.25 mg QIDRT REHAN Administration Levothyroxine Sodium 100 mcg 06/25/19 10:00 06/25/19 09:00 Synthroid 100 Mcg PO 07/25/19 09:59 100 mcg DAILY REHAN Administration Losartan Potassium 50 mg 06/25/19 10:00 06/25/19 09:00 Cozaar 50 Mg PO 07/25/19 09:59 50 mg DAILY REHAN Administration Methylprednisolone Sodium Succinate 40 mg 06/24/19 18:00 06/25/19 09:00 Solu-Medrol 40 Mg IV 07/24/19 17:59 40 mg Q8H REHAN Administration Metoprolol Succinate 25 mg 06/25/19 10:00 06/25/19 09:00 Toprol-Xl 25mg Tablets PO 07/25/19 09:59 25 mg DAILY REHAN Administration Miscellaneous Information 1 each 06/25/19 07:30 Medication Intervention PO 07/25/19 07:29 .RN TO CHECK ON REHAN Simvastatin 40 mg 06/24/19 22:00 06/24/19 21:30 Zocor 20mg PO 07/24/19 21:59 40 mg HS REHAN Administration Sodium Chloride 3 ml 06/25/19 07:30 06/25/19 10:08 Sodium Chloride 3 Ml Ud Nebules IH 07/25/19 07:29 3 ml QIDRT REHAN Administration Discontinued Medications Generic Name Dose Route Start Last Admin Trade Name Freq PRN Reason Stop Dose Admin Albuterol/Ipratropium Confirm 06/24/19 16:15 Duoneb 0.5-3 Mg/3 Ml Neb Administered 06/24/19 16:16 Dose 3 ml IH .STK-MED ONE Albuterol/Ipratropium 3 ml 06/24/19 19:00 06/24/19 16:20 Duoneb 0.5-3 Mg/3 Ml Neb IH 07/24/19 18:59 3 ml Q4HRT REHAN Administration Ceftriaxone Sodium/Dextrose 1 g in 50 mls @ 100 mls/hr 06/25/19 10:00 18:15 Rocephin 1 Gm-D5w 50 Ml Bag IV 07/25/19 09:59 100 mls/hr Q24H10 REHAN Administration Ceftriaxone Sodium/Dextrose Confirm 06/24/19 18:15 Rocephin 1 Gm-D5w 50 Ml Bag Administered 06/24/19 18:16 Dose 1 g in 50 mls @ ud IV .STK-MED ONE Azithromycin 500 mg in 250 mls @ 250 mls/hr 06/24/19 22:00 06/24/19 21:30 Zithromax 500 Mg/ 250 Ml Nacl Premix IV 07/24/19 21:59 250 mls/hr Q24H10 REHAN Administration Levalbuterol HCl 1.25 mg 06/24/19 22:00 06/25/19 07:19 Xopenex 1.25 Mg/0.5 Ml Ud Nebule IH 07/24/19 21:59 1.25 mg QID REHAN Administration Levalbuterol HCl Confirm 06/25/19 07:12 Xopenex 1.25 Mg/0.5 Ml Ud Nebule Administered 06/25/19 07:13 Dose 1.25 mg IH .STK-MED ONE Sodium Chloride Confirm 06/24/19 19:36 Sodium Chloride 3 Ml Ud Nebules Administered 06/24/19 19:37 Dose 3 ml IH .STK-MED ONE Sodium Chloride Confirm 06/25/19 07:12 Sodium Chloride 3 Ml Ud Nebules Administered 06/25/19 07:13 Dose 3 ml IH .STK-MED ONE Intake & Output (Last 24 hours) 06/23/19 06/24/19 06/25/19 06/26/19 11:59 11:59 11:59 11:59 Intake Total 1798 Output Total 1999 Balance -202 Weight 135 kg Microbiology Results (Last 24 hours) 06/24/19 18:45 Blood Blood Culture Gram Stain - Pending 06/24/19 18:45 Blood Blood Culture - Pending 06/24/19 Unknown Sputum - Expectorant Gram Stain - Final 06/24/19 Unknown Sputum - Expectorant Sputum Culture - Pending 06/24/19 19:20 Blood Blood Culture Gram Stain - Pending 06/24/19 19:20 Blood Blood Culture - Pending Laboratory Results (Last 24 hours) 06/25/19 06/25/19 06/24/19 09:15 09:15 21:55 WBC 12.5 H RBC 3.97 L Hgb 13.1 Hct 39.7 L MCV 100.0 MCH 33.0 H MCHC 33.0 RDW 13.0 Plt Count 240 MPV 10.7 H Gran % 97.1 H Eos # (Auto) 0.01 Absolute Lymphs (auto) 0.14 L Absolute Monos (auto) 0.20 Lymphocytes % 1.1 L Monocytes % 1.6 Eosinophils % 0.1 Basophils % 0.1 Absolute Granulocytes 12.09 H Basophils # 0.01 Sodium 141 Potassium 3.8 Chloride 103 Carbon Dioxide 28 Anion Gap 13.4 BUN 11 Creatinine 1.01 Estimated GFR > 60.0 Glucose 212 H Lactic Acid Calcium 8.7 Total Bilirubin 0.80 AST 24 ALT 16 Alkaline Phosphatase 63 Serum Total Protein 7.3 Albumin 3.9 Influenza Type A Ag NEGATIVE Influenza Type B Ag NEGATIVE RSV (PCR) NEGATIVE Slides for Path Review 06/24/19 06/24/19 06/24/19 19:58 18:45 18:45 WBC 13.7 H RBC 4.16 Hgb 13.6 Hct 41.4 L MCV 99.5 MCH 32.7 H MCHC 32.9 RDW 13.0 Plt Count 249 MPV 10.2 H Gran % 88.3 H Eos # (Auto) 0.03 Absolute Lymphs (auto) 0.33 L Absolute Monos (auto) 1.23 Lymphocytes % 2.4 L Monocytes % 9.0 Eosinophils % 0.2 Basophils % 0.1 Absolute Granulocytes 12.09 H Basophils # 0.02 Sodium 139 Potassium 3.8 Chloride 101 Carbon Dioxide 30 Anion Gap 11.8 BUN 10 Creatinine 1.11 Estimated GFR > 60.0 Glucose 125 H Lactic Acid 1.8 Calcium 8.4 Total Bilirubin 1.20 AST 24 ALT 13 Alkaline Phosphatase 69 Serum Total Protein 7.5 Albumin 4.0 Influenza Type A Ag Influenza Type B Ag RSV (PCR) Slides for Path Review YES Orders (Last 24 hours) Category Date Time Status Code Status Change Order ROUTINE Care 06/24/19 21:[address] in Observation ROUTINE Care 06/24/19 16:07 Active Cardio-Pulmonary Rehab .as ordered Cons 06/24/19 17:07 Active Pattern Hanger/Discharge Plan Cons 06/24/19 17:28 Active Regular Diet Diet 06/24/19 Dinner Active CHEST 1 VIEW (PORTABLE) Urgent Exams 06/24/19 18:32 Completed BLOOD CULTURE Urgent Lab 06/24/19 18:45 Received CBC W DIFF Routine Lab 06/24/19 18:45 Completed CBC W DIFF Urgent Lab 06/25/19 09:15 Completed CMP Routine Lab 06/24/19 18:45 Completed CMP Urgent Lab 06/25/19 09:15 Completed Flu & RSV [Respiratory Panel] Urgent Lab 06/24/19 21:55 Completed Lactic Acid Stat Lab 06/24/19 19:58 Completed Acetaminophen 500 mg [Tylenol Extra Strength 500 mg* Med 06/24/19 17:50 Active ] 500 mg PO Q6H PRN PRN Albuterol/Ipratropium 3ml Neb* [DUONEB 0.5-3 MG/3 ml Med 06/24/19 16:15 Discontinued Neb] 3 ml IH .STK-MED ONE Albuterol/Ipratropium 3ml Neb* [DUONEB 0.5-3 MG/3 ml Med 06/24/19 19:00 Discontinued Neb] 3 ml IH Q4HRT Alprazolam 0.5 mg [xanAX 0.5 MG] Med 06/24/19 22:00 Active 0.5 mg PO HS Aspirin EC 81 mg [Ecotrin 81 mg] Med 06/25/19 10:00 Active 81 mg PO DAILY Azithromycin 500 mg/250 ml [Zithromax 500 MG/ 250 ML Med 06/24/19 22:00 Discontinued NaCl Premix] 500 mg in 250 ml IV Q24H10 Azithromycin 500 mg/250 ml [Zithromax 500 MG/ 250 ML Med 06/25/19 22:00 Active NaCl Premix] 500 mg in 250 ml IV QPM Ceftriaxone 1 GM/50 ML PREMIX* [ROCEPHIN 1 Gm-D5w 50 ml Med 06/25/19 18:00 Active Bag] 1 g in 50 ml IV Q24H Ceftriaxone 1 GM/50 ML PREMIX* [ROCEPHIN 1 Gm-D5w 50 ml Med 06/25/19 10:00 Discontinued Bag] 1 g in 50 ml IV Q24H10 Ceftriaxone 1 GM/50 ML PREMIX* [ROCEPHIN 1 Gm-D5w 50 ml Med 06/24/19 18:15 Discontinued Bag] 1 g in 50 ml IV UD Gabapentin 100 mg [Neurontin 100 MG] Med 06/25/19 10:00 Active 100 mg PO DAILY Levalbuterol HCl 1.25 MG/0.5M* [Xopenex 1.25 MG/0.5 ML Med 06/24/19 17:56 Active UD NEBULE] 0.63 mg IH PRN PRN Levalbuterol HCl 1.25 MG/0.5M* [Xopenex 1.25 MG/0.5 ML Med 06/25/19 07:12 Discontinued UD NEBULE] 1.25 mg IH .STK-MED ONE Levalbuterol HCl 1.25 MG/0.5M* [Xopenex 1.25 MG/0.5 ML Med 06/24/19 22:00 Discontinued UD NEBULE] 1.25 mg IH QID Levalbuterol HCl 1.25 MG/0.5M* [Xopenex 1.25 MG/0.5 ML Med 06/25/19 07:30 Active UD NEBULE] 1.25 mg IH QIDRT Levothyroxine Sodium 100 Mcg [Synthroid 100 Mcg] Med 06/25/19 10:00 Active 100 mcg PO DAILY Losartan Potassium 50 mg [Cozaar 50 MG] Med 06/25/19 10:00 Active 50 mg PO DAILY Medication Intervention Med 06/25/19 07:30 Active 1 each PO .RN TO CHECK ON Methylprednisolone Sod Suc 40M [solu-MEDROL 40 MG] Med 06/24/19 18:00 Active 40 mg IV Q8H Metoprolol Succinate 25 mg Xl* [Toprol-Xl 25MG Tablets* Med 06/25/19 10:00 Active ] 25 mg PO DAILY NaCl 3Ml For Inhalation [Sodium Chloride 3 ML UD Med 06/24/19 19:36 Discontinued NEBULES] 3 ml IH .STK-MED ONE NaCl 3Ml For Inhalation [Sodium Chloride 3 ML UD Med 06/25/19 07:12 Discontinued NEBULES] 3 ml IH .STK-MED ONE NaCl 3Ml For Inhalation [Sodium Chloride 3 ML UD Med 06/25/19 07:30 Active NEBULES] 3 ml IH QIDRT Simvastatin 20Mg [Zocor 20Mg] Med 06/24/19 22:00 Active 40 mg PO HS Oxygen NASAL CANNULA 2 lpm RT 06/24/19 16:30 Active Peak Expiratory Flow Rate ONCE RT 06/24/19 16:27 Active Pulse Oximetry .spot check RT 06/24/19 16:23 Active Respiratory Therapy Assessment DAILY RT 06/24/19 16:27 Active Patient Care Notes (Last 24 hours) 06/25/19 09:00 (created 06/25/19 12:10) Nursing Note by Giulia Stokes fio2 decreased to 2L nc. Initialized on 06/25/19 12:10 - END OF NOTE 06/24/19 18:38 Nursing Note by Shirlene Abraham Called Dr Armenta with update; pt unable to receive chest x-ray A/P lateral d/t becoming nauseated when attempting to transfer from bed to chair R/T H/A. New order received for a portable chest x-ray. HOB up pt resting. Family at bedside. Initialized on 06/24/19 18:38 - END OF NOTE Code(s): J18.9 - PNEUMONIA, UNSPECIFIED ORGANISM
[2019-06-25] MEDS ORDERED: Tessalon Perles 100 MG PO PRN (12:51)
[2019-06-25 14:44] LABS: Slide Review 1 YES
[2019-06-25] MEDS: xanAX 0.5 MG PO SCH (21:00)
[2019-06-25] MEDS: ZOCOR 20MG PO SCH (21:00)
[2019-06-25] MEDS ORDERED: Zithromax 500 MG/ 250 ML NaCl Premix 500 MG/250 ML IVPB IV SCH (22:00)
[2019-06-26] MEDS: solu-MEDROL 40 MG IV SCH ×2 (01:46→09:18)
[2019-06-26] MEDS: Xopenex 1.25 MG/0.5 ML UD NEBULE IH SCH ×2 (06:46→10:40)
[2019-06-26] MEDS: Sodium Chloride 3 ML UD NEBULES IH SCH ×2 (06:46→10:40)
[2019-06-26] MEDS: Neurontin 100 MG PO SCH (09:17)
[2019-06-26] MEDS: Toprol-Xl 25MG Tablets PO SCH (09:18)
[2019-06-26] MEDS: ECOTRIN 81 MG PO SCH (09:18)
[2019-06-26] MEDS: SYNTHROID 100 MCG PO SCH (09:18)
[2019-06-26] MEDS: Cozaar 50 MG PO SCH (09:18)
[2019-06-26 10:44] VITALS: O2SAT 92
[2019-06-26 11:56] VITALS: BP 151/70; PULSE 88
--- NOTE | 2019-06-26 12:49 | PCM.DS ---
Discharge Summary Date of Admission: 06/24/19 18:32 Admitting Physician: ASHIA LUNDBERG Primary Care Provider: ASHIA LUNDBERG Allergies Allergies Penicillins Allergy (Intermediate, Verified 09/28/13 09:34) [facility] Summary - Hospital Course Hospital Course: Chief Complaint Diagnosis TRISTIAN PNEUMONIA, EXAC COPD Allergies Allergy/AdvReac Type Severity Reaction Status Date / Time Penicillins Allergy Intermediate Hives Verified 09/28/13 09:34 Vital Signs (Last 24 hours) Temp Pulse Resp BP Pulse Ox 06/26/19 11:00 98.2 F 88 18 151/70 92 L 06/26/19 10:43 73 16 92 L 06/26/19 07:00 97.9 F 74 18 133/63 94 L 06/26/19 06:51 68 18 94 L 06/26/19 03:06 98.1 F 71 18 117/64 95 06/25/19 23:52 98.0 F 80 18 125/59 96 06/25/19 19:42 98.4 F 80 18 125/61 94 L 06/25/19 19:25 77 18 94 L 06/25/19 16:27 98.2 F 70 20 124/57 92 L 06/25/19 15:10 80 20 91 L Home Medications Medication Instructions Recorded Confirmed Last Taken Type Gabapentin 100 mg PO DAILY 06/24/19 06/24/19 06/24/19 History 100 mg Losartan Potassium 50 mg PO DAILY 06/24/19 06/24/19 06/24/19 History 50 mg Current Medications Generic Name Dose Route Start Last Admin Trade Name Freq PRN Reason Stop Dose Admin Acetaminophen 500 mg 06/24/19 17:50 06/24/19 18:17 Tylenol Extra Strength 500 Mg PO 07/24/19 17:49 500 mg Q6H PRN PRN Administration PAIN Alprazolam 0.5 mg 06/24/19 22:00 06/25/19 21:00 Xanax 0.5 Mg PO 07/24/19 21:59 0.5 mg HS REHAN Administration Aspirin 81 mg 06/25/19 10:00 06/26/19 09:18 Ecotrin 81 Mg PO 07/25/19 09:59 81 mg DAILY REHAN Administration Benzonatate 200 mg 06/25/19 12:51 Tessalon Perles 100 Mg PO 07/25/19 12:50 TID PRN PRN COUGH Gabapentin 100 mg 06/25/19 10:00 06/26/19 09:17 Neurontin 100 Mg PO 07/25/19 09:59 100 mg DAILY REHAN Administration Ceftriaxone Sodium/Dextrose 1 g in 50 mls @ 100 mls/hr 06/25/19 18:00 17:03 Rocephin 1 Gm-D5w 50 Ml Bag IV 07/25/19 17:59 100 mls/hr Q24H REHAN Administration Azithromycin 500 mg in 250 mls @ 250 mls/hr 06/25/19 22:00 06/25/19 21:01 Zithromax 500 Mg/ 250 Ml Nacl Premix IV 07/24/19 21:59 250 mls/hr QPM REHAN Administration Levalbuterol HCl 0.63 mg 06/24/19 17:56 Xopenex 1.25 Mg/0.5 Ml Ud Nebule IH 07/24/19 17:55 PRN PRN sob Levalbuterol HCl 1.25 mg 06/25/19 07:30 06/26/19 10:40 Xopenex 1.25 Mg/0.5 Ml Ud Nebule IH 07/24/19 21:59 1.25 mg QIDRT REHAN Administration Levothyroxine Sodium 100 mcg 06/25/19 10:00 06/26/19 09:18 Synthroid 100 Mcg PO 07/25/19 09:59 100 mcg DAILY REHAN Administration Losartan Potassium 50 mg 06/25/19 10:00 06/26/19 09:18 Cozaar 50 Mg PO 07/25/19 09:59 50 mg DAILY REHAN Administration Methylprednisolone Sodium Succinate 40 mg 06/24/19 18:00 06/26/19 09:18 Solu-Medrol 40 Mg IV 07/24/19 17:59 40 mg Q8H REHAN Administration Metoprolol Succinate 25 mg 06/25/19 10:00 06/26/19 09:18 Toprol-Xl 25mg Tablets PO 07/25/19 09:59 25 mg DAILY REHAN Administration Miscellaneous Information 1 each 06/25/19 07:30 Medication Intervention PO 07/25/19 07:29 .RN TO CHECK ON REHAN Simvastatin 40 mg 06/24/19 22:00 06/25/19 21:00 Zocor 20mg PO 07/24/19 21:59 40 mg HS REHAN Administration Sodium Chloride 3 ml 06/25/19 07:30 06/26/19 10:40 Sodium Chloride 3 Ml Ud Nebules IH 07/25/19 07:29 3 ml QIDRT REHAN Administration Discontinued Medications Generic Name Dose Route Start Last Admin Trade Name Josiane PRN Reason Stop Dose Admin Albuterol/Ipratropium Confirm 06/24/19 16:15 Duoneb 0.5-3 Mg/3 Ml Neb Administered 06/24/19 16:16 Dose 3 ml IH .STK-MED ONE Albuterol/Ipratropium 3 ml 06/24/19 19:00 06/24/19 16:20 Duoneb 0.5-3 Mg/3 Ml Neb IH 07/24/19 18:59 3 ml Q4HRT REHAN Administration Ceftriaxone Sodium/Dextrose 1 g in 50 mls @ 100 mls/hr 06/25/19 10:00 18:15 Rocephin 1 Gm-D5w 50 Ml Bag IV 07/25/19 09:59 100 mls/hr Q24H10 REHAN Administration Ceftriaxone Sodium/Dextrose Confirm 06/24/19 18:15 Rocephin 1 Gm-D5w 50 Ml Bag Administered 06/24/19 18:16 Dose 1 g in 50 mls @ ud IV .STK-MED ONE Azithromycin 500 mg in 250 mls @ 250 mls/hr 06/24/19 22:00 06/24/19 21:30 Zithromax 500 Mg/ 250 Ml Nacl Premix IV 07/24/19 21:59 250 mls/hr Q24H10 REHAN Administration Levalbuterol HCl 1.25 mg 06/24/19 22:00 06/25/19 07:19 Xopenex 1.25 Mg/0.5 Ml Ud Nebule IH 07/24/19 21:59 1.25 mg QID REHAN Administration Levalbuterol HCl Confirm 06/25/19 07:12 Xopenex 1.25 Mg/0.5 Ml Ud Nebule Administered 06/25/19 07:13 Dose 1.25 mg IH .STK-MED ONE Sodium Chloride Confirm 06/24/19 19:36 Sodium Chloride 3 Ml Ud Nebules Administered 06/24/19 19:37 Dose 3 ml IH .STK-MED ONE Sodium Chloride Confirm 06/25/19 07:12 Sodium Chloride 3 Ml Ud Nebules Administered 06/25/19 07:13 Dose 3 ml IH .STK-MED ONE Intake & Output (Last 24 hours) 06/24/19 06/25/19 06/26/19 06/27/19 11:59 11:59 11:59 11:59 Intake Total 1798 2440 480 Output Total 1999 2150 Balance -202 290 480 Weight 135 kg Microbiology Results (Last 24 hours) 06/24/19 18:45 Blood Blood Culture Gram Stain - Pending 06/24/19 18:45 Blood Blood Culture - Preliminary NO GROWTH TO DATE 06/24/19 19:20 Blood Blood Culture Gram Stain - Pending 06/24/19 19:20 Blood Blood Culture - Preliminary NO GROWTH TO DATE 06/24/19 Unknown Sputum - Expectorant Gram Stain - Final 06/24/19 Unknown Sputum - Expectorant Sputum Culture - Pending Laboratory Results (Last 24 hours) 06/25/19 09:15 Slides for Path Review YES Orders (Last 24 hours) Category Date Time Status Azithromycin 500 mg/250 ml [Zithromax 500 MG/ 250 ML Med 06/25/19 22:00 Active NaCl Premix] 500 mg in 250 ml IV QPM Benzonatate 100 mg [Tessalon Perles 100 MG] Med 06/25/19 12:51 Active 200 mg PO TID PRN PRN Ceftriaxone 1 GM/50 ML PREMIX* [ROCEPHIN 1 Gm-D5w 50 ml Med 06/25/19 18:00 Active Bag] 1 g in 50 ml IV Q24H Patient Care Notes (Last 24 hours) 06/26/19 11:09 Case Management Note by Meredith Cobos PRIMARY RN NOTIFIED OF ROUTES TO GET PATIENT A NEB MACHINE *IF* HE WOULD NEED ONE AT [facility] D/T NO PHARMACY IN [place] CARRYING NEB MACHINES AT THIS TIME. Initialized on 06/26/19 11:09 - END OF NOTE 06/26/19 10:52 Case Management Note by Meredith Cobos PATIENT DENIES ANY NEEDS AT DC AT THIS TIME. PATIENT PLANS TO RETURN HOME TO HIS PRIOR LEVEL OF FUNCTIONING. PATIENT WILL BE ABLE TO FILL ANY SCRIPTS SENT WITH HIM AND WILL BE ABLE TO MAKE ANY FOLLOW UP APTS. Initialized on 06/26/19 10:52 - END OF NOTE 06/26/19 08:49 Nursing Note by Giulia Stokes dr. on phone and updated. plans to round on pt at lunchtime, no new orders at this time. Initialized on 06/26/19 08:49 - END OF NOTE - Vitals & Intake/Output Vital Signs: Vital Signs Temperature 98.2 F 06/26/19 11:00 Pulse Rate 88 06/26/19 11:00 Respiratory Rate 18 06/26/19 11:00 Blood Pressure 151/70 06/26/19 11:00 O2 Sat by Pulse Oximetry 92 L 06/26/19 11:00 Oxygen-Last Documented O2 Percentage 1 Liter = 24% Intake & Output: Intake & Output 06/24/19 06/25/19 06/26/19 06/27/19 11:59 11:59 11:59 11:59 Intake Total 1798 2440 480 Output Total 1999 2150 Balance -202 290 480 Weight 135 kg - Lab Result Diagrams: 06/25/19 09:15 06/25/19 09:15 Lab Results-Last 24 Hrs: Lab Results-Last 24 Hours 06/25/19 Range/Units 09:15 Slides for Path Review YES Micro Results-Entire Visit: Microbiology 06/24/19 18:45 Blood Culture - Preliminary Blood NO GROWTH TO DATE 06/24/19 19:20 Blood Culture - Preliminary Blood NO GROWTH TO DATE 06/24/19 Unknown Gram Stain - Final Sputum - Expectorant - Radiology Exams Ordered Rad Exams-Entire Visit: Radiology Procedures Category Date Time Status CHEST 1 VIEW (PORTABLE) Urgent Exams 06/24/19 18:32 Completed - Procedures and Test Procedures and Tests throughout Hospitalization: Therapy Orders & Screens 06/24/19 16:27 Peak Expiratory Flow Rate ONCE Comment: Reason For Exam: Respiratory Therapy Assessment DAILY Comment: 06/24/19 16:30 Oxygen NASAL CANNULA 2 lpm Comment: Discharge Exam General Appearance: no apparent distress, alert Neurologic Exam: alert, oriented x 3, cooperative, normal mood/affect, nml cerebellar function, sensation nml, No motor deficits Eye Exam: PERRL, EOMI, eyes nml inspection Ears, Nose, Throat Exam: normal ENT inspection, pharynx normal, moist mucous membranes Neck Exam: normal inspection, non-tender, supple, full range of motion Respiratory Exam: normal breath sounds, lungs clear, No respiratory distress Cardiovascular Exam: regular rate/rhythm, normal heart sounds Gastrointestinal/Abdomen Exam: soft, No tenderness, No mass Male Genitalia Exam: deferred Rectal Exam: deferred Back Exam: normal inspection, normal range of motion, No CVA tenderness, No vertebral tenderness Extremity Exam: normal inspection, normal range of motion Skin Exam: normal color, warm, dry Final Diagnosis/Problem List - Final Discharge Diagnosis/Problem (1) Pneumonia Current Visit: Yes Status: Acute Priority: High Assessment & Plan: Last Vital Signs Temp 98.2 F 06/26/19 11:00 Pulse 88 06/26/19 11:00 Resp 18 06/26/19 11:00 BP 151/70 06/26/19 11:00 Pulse Ox 92 L 06/26/19 11:00 Allergies Penicillins Allergy (Intermediate, Verified 09/28/13 09:34) Hives Active Medications Acetaminophen (Tylenol Extra Strength 500 Mg) 500 mg PO Q6H PRN PRN PRN Reason: PAIN Stop: 07/24/19 17:49 Last Admin: 06/24/19 18:17 Dose: 500 mg Alprazolam (Xanax 0.5 Mg) 0.5 mg PO HS REHAN Stop: 07/24/19 21:59 Last Admin: 06/25/19 21:00 Dose: 0.5 mg Aspirin (Ecotrin 81 Mg) 81 mg PO DAILY REHAN Stop: 07/25/19 09:59 Last Admin: 06/26/19 09:18 Dose: 81 mg Benzonatate (Tessalon Perles 100 Mg) 200 mg PO TID PRN PRN PRN Reason: COUGH Stop: 07/25/19 12:50 Gabapentin (Neurontin 100 Mg) 100 mg PO DAILY REHAN Stop: 07/25/19 09:59 Last Admin: 06/26/19 09:17 Dose: 100 mg Ceftriaxone Sodium/Dextrose (Rocephin 1 Gm-D5w 50 Ml Bag) 1 g in 50 mls @ 100 mls/hr IV Q24H REHAN Stop: 07/25/19 17:59 Last Admin: 06/25/19 17:03 Dose: 100 mls/hr Azithromycin (Zithromax 500 Mg/ 250 Ml Nacl Premix) 500 mg in 250 mls @ 250 mls /hr IV QPM REHAN Stop: 07/24/19 21:59 Last Admin: 06/25/19 21:01 Dose: 250 mls/hr Levalbuterol HCl (Xopenex 1.25 Mg/0.5 Ml Ud Nebule) 0.63 mg IH PRN PRN PRN Reason: sob Stop: 07/24/19 17:55 Levalbuterol HCl (Xopenex 1.25 Mg/0.5 Ml Ud Nebule) 1.25 mg IH QIDRT [facility] Stop: 07/24/19 21:59 Last Admin: 06/26/19 10:40 Dose: 1.25 mg Levothyroxine Sodium (Synthroid 100 Mcg) 100 mcg PO DAILY [facility] Stop: 07/25/19 09:59 Last Admin: 06/26/19 09:18 Dose: 100 mcg Losartan Potassium (Cozaar 50 Mg) 50 mg PO DAILY [facility] Stop: 07/25/19 09:59 Last Admin: 06/26/19 09:18 Dose: 50 mg Methylprednisolone Sodium Succinate (Solu-Medrol 40 Mg) 40 mg IV Q8H [facility] Stop: 07/24/19 17:59 Last Admin: 06/26/19 09:18 Dose: 40 mg Metoprolol Succinate (Toprol-Xl 25mg Tablets) 25 mg PO DAILY [facility] Stop: 07/25/19 09:59 Last Admin: 06/26/19 09:18 Dose: 25 mg Miscellaneous Information (Medication Intervention) 1 each PO .RN TO CHECK ON [facility] Stop: 07/25/19 07:29 Simvastatin (Zocor 20mg) 40 mg PO HS [facility] Stop: 07/24/19 21:59 Last Admin: 06/25/19 21:00 Dose: 40 mg Sodium Chloride (Sodium Chloride 3 Ml Ud Nebules) 3 ml IH QIDRT [facility] Stop: 07/25/19 07:29 Last Admin: 06/26/19 10:40 Dose: 3 ml Intake & Output 06/26/19 06/27/19 11:59 11:59 Intake Total 2440 480 Output Total 2150 Balance 290 480 Orders 06/25/19 12:51 Benzonatate 100 mg [Tessalon Perles 100 MG] 200 mg PO TID PRN PRN 06/25/19 18:00 Ceftriaxone 1 GM/50 ML PREMIX* [ROCEPHIN 1 Gm-D5w 50 ml Bag] 1 g in 50 ml IV Q24H 06/25/19 22:00 Azithromycin 500 mg/250 ml [Zithromax 500 MG/ 250 ML NaCl Premix] 500 mg in 250 ml IV QPM Lab Tests 06/25/19 09:15 Slides for Path Review YES Microbiology 06/24/19 18:45 Blood Blood Culture - Preliminary NO GROWTH TO DATE 06/24/19 19:20 Blood Blood Culture - Preliminary NO GROWTH TO DATE 06/24/19 Unknown Sputum - Expectorant Gram Stain - Final Code(s): J18.9 - PNEUMONIA, UNSPECIFIED ORGANISM - Discharge Discharge Date: 06/26/19 Disposition: Home, Self-Care Condition: Stable Prescriptions: New Levofloxacin [Levaquin] 500 mg PO DAILY #7 tablet Methylprednisolone Packet [Medrol Dosepack] 4 mg PO UD #30 packet Continue Pravastatin Sodium 40 mg PO HS Levothyroxine Sodium 100 mcg PO DAILY Aspirin 81 mg PO DAILY #30 tablet Metoprolol Succinate 25 mg Xl* [Toprol-Xl 25MG Tablets] 25 mg PO DAILY Alprazolam 0.5 mg [xanAX 0.5 MG] 0.5 mg PO HS Tofacitinib Citrate [Xeljanz Xr] 11 mg PO DAILY Gabapentin 100 mg PO DAILY Losartan Potassium 50 mg PO DAILY Instructions: Pneumonia, Adult (DC) Follow up with: ASHIA LUNDBERG MD [Primary Care Provider] - 1 Week
== END 2019-06-26 13:22 | disposition home or self-care (01) | DRG 194 ==
LOC: MED SURG 16:07 → OBSVTOIN 18:32 → MED SURG 18:32
PROVIDERS: ADMIT General Practice; ATTEND General Practice
DX: J18.9 Pneumonia, unspecified organism (principal); J44.1 Chronic obstructive pulmonary disease with (acute) exacerbation; Z79.899 Other long term (current) drug therapy
CPT/HCPCS: 36415; 71045; 80053; 83605; 85025; 87040; 87070; 87631; 94150; 94640; 94760; J0456; J0696; J2920; A9270-GY

== ENCOUNTER 2020-11-06 08:35 | Day surgery (SDC) | payer MEDICARE, OTHER ==
[~2020-11-06 08:35] MED LIST: BUPIVACAINE 0.5% VIAL IJ ONE; Lactated Ringers 1,000 ML IV ONE; XYLOCAINE 1% HCL 20 ML MDV ONE
[2020-11-06] MEDS ORDERED: Lactated Ringers 1,000 ML IV ONE ×2 (09:28→14:22)
[2020-11-06] MEDS ORDERED: CLINDAMYCIN-D5W 900 MG/50 ML*** 900 MG/50 ML BAG IV ONE (09:28)
[2020-11-06] MEDS: Lactated Ringers 1,000 ML IV SCH (10:01)
[2020-11-06] MEDS: CLINDAMYCIN-D5W 900 MG/50 ML*** 900 MG/50 ML BAG IV SCH (10:01)
[2020-11-06] MEDS ORDERED: Zofran 4 MG/2 ML VIAL ONE (12:27)
[2020-11-06] MEDS ORDERED: SUBLIMAZE 100 MCG/2 ML ONE ×2 (12:27→14:36)
[2020-11-06] MEDS ORDERED: Xylocaine-Mpf 2% 5 Ml Vial ONE (12:27)
[2020-11-06] MEDS ORDERED: DIPRIVAN 200 MG/20 ML IV ONE (12:27)
[2020-11-06] MEDS ORDERED: Decadron 4 MG INJ ONE (12:27)
[2020-11-06] MEDS ORDERED: Ephedrine Sulfate 50 MG/ML ONE ×2 (12:40→13:35)
[2020-11-06] MEDS ORDERED: Astramorph-Pf 5 MG/10 ML ONE (13:30)
--- NOTE | 2020-11-06 15:47 | XRAY ---
Indication: Modified Blake procedure right foot. Intraoperative fluoroscopy provided for 3 minutes. 17 digital spot images submitted for interpretation demonstrates fusion first MTP with anterior plate/7 fixation screws, osteotomy heads of 2nd-5th metatarsals, and orthopedic K wires traversing entire 2nd-4th toes/metatarsals. Correlate with intraoperative findings/report.
--- NOTE | 2020-11-06 15:49 | XRAY ---
3 minutes fluoroscopy time in surgery for modified Blake procedure of the right foot.
[2020-11-06 17:31] VITALS: BP 148/69; PULSE 82; O2SAT 94
--- NOTE | 2020-11-09 11:30 | OP ---
SURGERY DATE/TIME: 11/06/2020 1226 PREOPERATIVE DIAGNOSIS: POSTOPERATIVE DIAGNOSIS: PROCEDURE: Modified Blake procedure right foot. SURGEON: Thomas Vidales DPM. CUSHION MAKER HAND: None. ANESTHESIA: General with local. HEMOSTASIS: Thigh tourniquet set to 350 mm of Mercury for a total of 156 minutes. ESTIMATED BLOOD LOSS: 50 cc. MATERIALS: 1.4 mm K-wires x3. Ortholoc first metatarsophalangeal joint arthrodesis plate and a cannulated 3.0 mm screw as well as 2-0 Vicryl and 3-0 Nylon. INJECTABLES: 40 cc of 1:1 mixture of 1% lidocaine plain and 0.5% bupivacaine plain injected into the right first ray in a first ray block-type fashion as well as digital blocks for the lesser digits to 2, 3 and 4. INDICATION FOR SURGERY: Ross is a very pleasant 70 year-old male who has had multiple bouts of intervention secondary to his rheumatoid arthritis to the bilateral lower extremities. He has seen multiple physicians in the past for the condition which he has had surgical interventions with replacement of joints to his left foot. However at this time he is demonstrating recurrence of his deformity to his right foot and left foot. However, his right foot is more symptomatic resulting in inability of pressure to the forefoot particularly from the first metatarsal head and fourth metatarsal head. Radiographs demonstrating complete disillusion of the metatarsal head of metatarsals 2, 3 and 5 as expected with rheumatoid arthritis. There are significant contractures to the bilateral lower extremity with particular interest of deviation of the second digit, third digit and fourth digit with abductor varus rotations for the fourth and fifth digit as well. The patient presented initially for shaving down callouses and advice as far as surgery recommendations. He was advised that surgical intervention would likely be the best option for him in regards to weight bearing without significant pain due to the deformity he has developed to the bilateral lower extremities. The patient was given a prescription at that time and the callous were shaved. However a few days later the patient made the decision with the help of his family to proceed with surgical intervention consisting of a modified Blake procedure. The patient understands the implications of the procedure as well as the complications, benefits and risks of surgical intervention at this time and still wishes to proceed with surgical intervention. All risks were described to him in depth and in detail. He understands that due to his rheumatoid arthritis and also being on biologics and management medically for the rheumatoid arthritis, there would be medical management that needs to be stopped for certain periods of time in order to expedite and insure his wound healing goes without complication. 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 The patient understands these risks and still wishes to proceed with surgical intervention. DESCRIPTION OF PROCEDURE AND FINDINGS: After adequate assessment by the anesthesia team the patient was brought into the OR and placed under general anesthesia after being placed on the OR table in the supine position. Following this a well-padded thigh tourniquet was applied to the right lower extremity and the tourniquet was set to 350 mm of Mercury. At this time the right leg was prepped and draped in the typical sterile fashion and the extremity was lowered onto the field. At this time attention was directed to the right foot where the obvious contractures and deformity of the foot were appreciated with particular interest of first metatarsal head as well as the fourth metatarsal head which correlates with the highest areas of pressure on radiographs. At this time a Carvalho block and digital blocks were carried out consisting of 40 cc of a 1:1 mixture of 1% lidocaine plain and 0.5% Marcaine plain in a ring block as well as digital block-type fashion to the right lower extremity. Following this incision lines were marked out utilizing a skin marker just medial to the extensor hallucis longus of the first ray in between metatarsal heads 2-3 and 4-5 and transversely across the proximal interphalangeal joints of digits 2, 3 and 4 in order to plan for repair of digital contractures. At this time a 15 blade was utilized to make an incision through the skin. At the time the subcutaneous tissue was dissected through utilizing a combination of blunt and sharp dissection in order to prevent any injury to any neurovascular structures. Any bleeders were cauterized along the path and the incision was carried down to the capsule of the first metatarsophalangeal joint at this time. Once the capsule was identified and inverted, L-type incision was made at the capsule exposing the first metatarsophalangeal joint head. At this time a J-stroke was performed at the lateral aspect in order to protect the medial structures following around the medial aspect of the bone. A J-stroke was performed at the lateral aspect as well insuring that there was complete exposure of the first metatarsal head at this time. A sagittal saw blade was then utilized to resect any prominences at the dorsal and medial aspect of the first metatarsal head. Following this a 1.6 mm K-wire was then inserted into the longitudinal axis of the first metatarsal and conical reamer was placed along the distal aspect of the first metatarsal head. At this time the reamer was then advanced denuding the cartilage off of the first metatarsal head down to the subchondral plate. Following this the K-wire was then removed and retrograded into the first ray proximal phalanx along the dorsal longitudinal cortex making sure to stay perpendicular to the plane of the first metatarsophalangeal joint. At this time a conical reamer was then utilized to denude the cartilage on the proximal aspect of the base of the proximal phalanx. At this time the subchondral space was visualized. A 2.0 mm cannulated drill was utilized to make drill holes through the metatarsal head as well as the base of the proximal phalanx in order to allow for vascular channels to be established in the healing process. At this time a 1.1 mm K-wire was then advanced across the first metatarsophalangeal joint from a distal medial to a proximal lateral orientation in preparation of 3.0 mm cannulated compression screw. At this time the 3.0 mm compression screw was advanced getting excellent compression to the bone joint surfaces. At this time a dorsal Ortholoc 2 plate was placed on the dorsal aspect of the first metatarsophalangeal joint. The distal screws were inserted in a locking-type fashion securing to the plate with the plate flush to the bone surface. At this time a non-locking screw was introduced into the eccentric screw hole providing for additional compression to the site. At this time alternation between the cannulated interfragmentary screw was advanced was advanced as well as the non-locking eccentrically drilled screw created continuous compression throughout the joint in order to allow for the best possible healing. At this time the remaining holes in the proximal aspect of the plate were filled using locking screws for the rest of the plate. At this time the capsule was then repaired over the aspect of the plate. The dorsal extensor tendon was brought back into place and the capsule was completely enclosed over the dorsal aspect of the plate so as to provide for complete closure of the wound. At this time subcutaneous tissue was coapted utilizing 2-0 Vicryl. Following this the incisions between the metatarsal heads 2 and 3 as well as 4 and 5 were made. At this time dissection was carried out through the skin with a combination of blunt and sharp dissection was performed between these two surfaces being careful not to damage any of the neurovascular structures between the dorsal aspects of the digits. Dissection was made down to the level of the bone and identification of the dystrophic metatarsal heads were then identified. At this time a sagittal saw was utilized to resect metatarsal head #2 being careful not to damage any neurovascular structures in the way. Metatarsal head #3 was then resected. There was a distinct difference between the quality of the metatarsal head due to the destructive nature of the patient's rheumatoid arthritis and these two metatarsal heads were passed off the field and sent for pathologic assessment. At this time the second incision was carried through the skin and subcutaneous tissue between metatarsal heads 4 and 5. Resections again took place in similar-type fashion to be careful not to damage any neurovascular structures along the way. With resection of the metatarsal heads using sagittal saw, there was respect for the metatarsal parabola to be maintained which was completed keeping this in mind. Following this the metatarsal heads were passed of en toto all four and sent for pathologic assessment at that time. Following this attention was directed to the dorsal aspect of the proximal interphalangeal joints of digits 2, 3 and 4 where there were digital contractures as well as abductor varus rotation of these digits. A hammer toe-type arthrodesis was utilized and a 1.4 K-wire being retrograded out of the distal aspect of the toe and then reversed into the proximal aspect of the proximal phalanx and then down into the base of the metatarsals for security. The proximal phalanx head and the base of the middle phalanx were resected in a similar-type fashion to all of these digits. These steps were checked under fluoroscopy and they were insured to make purchase through the metatarsal base in order to secure them. At this time all of the incisions were coapted. Extensor tendons were released and lengthened as necessary. Capsules were closed utilizing 2-0 Vicryl and subcutaneous tissue was coapted utilizing 2-0 Vicryl as well after a copious amount of sterile saline was utilized to flush the incisional sites. Following this 3-0 Nylon was then utilized to coapt all incision sites in a horizontal mattress-type fashion or a simple interrupted-type fashion. The tourniquet was deflated twice throughout the procedure at the 120 minute monae as well as after re-inflation 36 minutes after that for a total tourniquet time of 156 minutes. The patient was reversed from anesthesia. Following reversal a dressing consisting of Betadine, Adaptic, 4x4, Kerlix and Tod and a forefoot offloading shoe was applied to the patient's right foot. The patient was returned to the postoperative anesthesia care unit with vital signs stable and vascular status intact. The patient handled the anesthesia and procedure without complication. Postoperative orders as indicated in the patient's chart as well as in the surgical chart.
== END 2020-11-06 17:40 | disposition home or self-care (01) ==
LOC: SDC 08:35
PROVIDERS: ATTEND Podiatrist Foot & Ankle Surgery
DX: M06.9 Rheumatoid arthritis, unspecified (principal); M79.671 Pain in right foot; M24.575 Contracture, left foot; M24.574 Contracture, right foot
CPT/HCPCS: 28112; 28285; 28750; 73620; 76000; 99100; J1100; J2274; J2405; J2704; J3010

== ENCOUNTER 2021-05-26 12:12 | Observation (INO) | payer MEDICARE, OTHER ==
[2021-05-26] MEDS ORDERED: Mylicon 80MG PO PRN (13:00)
[2021-05-26] MEDS: Pepcid 20 MG VIAL IV SCH ×2 (13:37→21:16)
[2021-05-26] MEDS: Sodium Chloride 0.9% 1000 ML 1,000 ML IV SCH (13:37)
[2021-05-26] MEDS ORDERED: PROTONIX 40 MG IV IV SCH (14:00)
--- NOTE | 2021-05-26 14:32 | XRAY ---
Indication: COPD exacerbation. Comparison: June 24, 2019. PA/lateral chest demonstrates new mild left infrahilar infiltrate versus atelectasis. Remaining lungs clear with stable COPD. Heart not enlarged with stable bilateral hilar calcified nodes. Bony thorax intact with stable osteopenia and degenerative changes. Impression: New left infrahilar infiltrate versus atelectasis. Stable COPD, chronic bony findings, and old granulomatous disease.
[2021-05-26 15:23] LABS: Hematocrit 46.1 % (42-50); Hemoglobin 14.7 gm/dl (12.5-18.0); Mean Cell Volume 101.5 fl (78-100); Mean Corpuscular Hemoglobin 32.4 pg (26-32); Mean Corpuscular Hgb Concent. 31.9 g/dl (32-36); Platelet Count 290 K/mm3 (150-450); Red Blood Count 4.54 M/mm3 (4.1-5.6); Red Cell Distribution Width 13.3 % (11.5-14.0); White Blood Count 13.3 K/mm3 (4.0-10.5)
[2021-05-26 15:34] LABS: ALBUMIN 4.1 g/dL (3.5-5.0); Creatinine 1 1.29 mg/dL (0.66-1.25); EST GLOMERULAR FILTRATION RATE 58.4 ML/MIN; Potassium 3.9 mmol/L (3.5-5.1); Total Protein 7.3 g/dL (6.3-8.2)
[2021-05-26] MEDS ORDERED: MEDICATION INTERVENTION MC SCH (15:45)
[2021-05-26] MEDS: ROCEPHIN 1 Gm-D5w 50 ml Bag** 1 G/50 ML IVPB IV SCH (16:05)
[2021-05-26] MEDS: Zithromax 500 MG/ 250 ML NaCl Premix 500 MG/250 ML IVPB IV SCH (16:05)
[2021-05-26] MEDS ORDERED: TYLENOL 325 MG PO PRN (18:26)
[2021-05-26] MEDS: ZOCOR 20MG PO SCH (21:16)
[2021-05-26] MEDS ORDERED: NON-FORMULARY ITEM (Pravastatin Sodium [Pravastatin Sodium] 20 MG Tablet) PO SCH (22:00)
[2021-05-26] MEDS ORDERED: xanAX 0.5 MG PO SCH (22:00)
--- NOTE | 2021-05-27 07:44 | PCM.HP.ADD ---
Addendum to History & Physical - History & Physical Addendum Addendum to History & Physical: This certifies that the History & Physical in the electronic chart reflects the current health status of the patient. If there are changes in the H&P these changes/exceptions are listed as follows.
--- NOTE | 2021-05-27 07:47 | PCM.NOTE ---
Date and Time: 05/27/21 0744 Subjective Assessment: last 24 hours events noted - Review of Systems Constitutional: No Fever, No Chills Eyes: No Symptoms Ears, Nose, & Throat: No Symptoms Respiratory: Cough, Orthopnea, Short Of Breath, Wheezing Cardiac: No Chest Pain, No Edema, No Syncope Abdominal/Gastrointestinal: No Abdominal Pain, No Nausea, No Vomiting, No Diarrhea Genitourinary Symptoms: No Dysuria Musculoskeletal: No Back Pain, No Neck Pain Skin: No Rash Neurological: No Dizziness, No Focal Weakness, No Sensory Changes Psychological: No Symptoms Endocrine: No Symptoms Hematologic/Lymphatic: No Symptoms Immunological/Allergic: No Symptoms Objective Exam General Appearance: no apparent distress, alert Neurologic Exam: alert, oriented x 3, cooperative, normal mood/affect, nml cerebellar function, sensation nml, No motor deficits Skin Exam: normal color, warm, dry Eye Exam: PERRL, EOMI, eyes nml inspection Ears, Nose, Throat Exam: normal ENT inspection, pharynx normal, moist mucous membranes Neck Exam: normal inspection, non-tender, supple, full range of motion Respiratory Exam: rhonchi, wheezing, No respiratory distress Cardiovascular Exam: regular rate/rhythm, normal heart sounds Gastrointestinal/Abdomen Exam: soft, No tenderness, No mass Extremity Exam: normal inspection, normal range of motion Back Exam: normal inspection, normal range of motion, No CVA tenderness, No vertebral tenderness Male Genitalia Exam: deferred Rectal Exam: deferred OBJECTIVE DATA Vital Signs: Vital Signs - 24 hr Temp Pulse Resp BP Pulse Ox 05/27/21 07:00 97.4 F 75 19 140/78 93 L 05/27/21 06:50 94 L 05/27/21 04:30 95 05/27/21 03:44 97.5 F 67 16 148/76 93 L 05/26/21 23:31 97.3 F 62 19 126/64 98 05/26/21 19:33 98.0 F 76 18 136/84 92 L 05/26/21 16:00 97.8 F 77 18 134/65 92 L 05/26/21 15:11 91 L 05/26/21 14:54 78 12 91 L 05/26/21 13:19 98.2 F 86 21 130/95 91 L Pain Assessment - Last Documented Pain Intensity 0 Pain Scale Used 0-10 Pain Scale Intake and Output: Intake & Output 05/24/21 05/25/21 05/26/21 05/27/21 11:59 11:59 11:59 11:59 Intake Total 2091 Output Total 2150 Balance -59 Weight 77.5 kg Lab Results: Lab Results-Last 24 Hours 05/26/21 05/26/21 05/26/21 Range/Units 12:45 15:00 15:00 WBC 13.3 H (4.0-10.5) K/mm3 RBC 4.54 (4.1-5.6) M/mm3 Hgb 14.7 (12.5-18.0) gm/dl Hct 46.1 (42-50) % MCV 101.5 H (78-100) fl MCH 32.4 H (26-32) pg MCHC 31.9 L (32-36) g/dl RDW 13.3 (11.5-14.0) % Plt Count 290 (150-450) K/mm3 MPV 11.0 (7.5-11.0) fl Sodium 142 (137-145) mmol/L Potassium 3.9 (3.5-5.1) mmol/L Chloride 104 (98-107) mmol/L Carbon Dioxide 29 (22-30) mmol/L Anion Gap 13.0 (5-15) MEQ/L BUN 12 (9-20) mg/dL Creatinine 1.29 H (0.66-1.25) mg/dL Estimated GFR 58.4 ML/MIN Glucose 142 H (74-106) mg/dL Calcium 9.0 (8.4-10.2) mg/dL Total Bilirubin 1.00 (0.2-1.3) mg/dL AST 26 (17-59) U/L ALT 17 (0-50) U/L Alkaline Phosphatase 67 (38-126) U/L Serum Total Protein 7.3 (6.3-8.2) g/dL Albumin 4.1 (3.5-5.0) g/dL SARS-CoV-2 (PCR) NEGATIVE (NEGATIVE) Radiology Exams: Radiology Procedures Category Date Time Status CHEST 2 VIEWS (PA AND LAT) Urgent Exams 05/26/21 Completed Assessment/Plan (1) Pneumonia Current Visit: Yes Status: Acute Qualifiers: Pneumonia type: due to group B Streptococcus Laterality: left Lung location: lower lobe of lung Qualified Code(s): J15.3 - Pneumonia due to streptococcus, group B Assessment & Plan: Chief Complaint Diagnosis COPD EXACERBATION Allergies Allergy/AdvReac Type Severity Reaction Status Date / Time Penicillins Allergy Intermediate Hives Verified 11/06/20 08:52 Vital Signs (Last 24 hours) Temp Pulse Resp BP Pulse Ox 05/27/21 07:00 97.4 F 75 19 140/78 93 L 05/27/21 06:50 94 L 05/27/21 04:30 95 05/27/21 03:44 97.5 F 67 16 148/76 93 L 05/26/21 23:31 97.3 F 62 19 126/64 98 05/26/21 19:33 98.0 F 76 18 136/84 92 L 05/26/21 16:00 97.8 F 77 18 134/65 92 L 05/26/21 15:11 91 L 05/26/21 14:54 78 12 91 L 05/26/21 13:19 98.2 F 86 21 130/95 91 L Home Medications Medication Instructions Recorded Confirmed Last Taken Type Gabapentin 100 mg [Neurontin 100 mg PO DAILY 05/26/21 05/26/21 05/26/21 History 100 MG] Losartan Potassium 50 mg 50 mg PO DAILY 05/26/21 05/26/21 05/26/21 History [Cozaar 50 MG] PANTOPRAZOLE 40 mg Tablet 40 mg PO DAILY 05/26/21 05/26/21 05/26/21 History [Protonix 40MG Tablet] Current Medications Generic Name Dose Route Start Last Admin Trade Name Freq PRN Reason Stop Dose Admin Acetaminophen 650 mg 05/26/21 18:26 05/26/21 18:29 Acetaminophen 325 Mg Tablet PO 06/25/21 18:25 650 mg Q4H PRN PRN Administration PAIN AND/OR FEVER Alprazolam 0.5 mg 05/26/21 22:00 05/26/21 21:16 Alprazolam 0.5 Mg Tablet PO 06/25/21 21:59 0.5 mg HS REHAN Administration Aspirin 81 mg 05/27/21 10:00 Aspirin 81 Mg Tablet.Ec PO 06/26/21 09:59 DAILY REHAN Famotidine 20 mg 05/26/21 14:00 05/26/21 21:16 Famotidine 20 Mg/1 Vial IV 06/25/21 13:59 20 mg Q12HT REHAN Administration Gabapentin 100 mg 05/27/21 10:00 Gabapentin 100 Mg Capsule PO 06/26/21 09:59 DAILY REHAN Sodium Chloride 1,000 mls @ 50 mls/hr 05/26/21 13:00 05/26/21 13:37 Sodium Chloride 0.9% 1000 Ml IV 06/25/21 12:59 50 mls/hr .Q20H REHAN Administration Ceftriaxone Sodium/Dextrose 1 g in 50 mls @ 100 mls/hr 05/26/21 16:00 05/26/21 16:05 Rocephin 1 Gm-D5w 50 Ml Bag IV 05/29/21 15:59 100 mls/hr Q24H10 REHAN Administration Azithromycin 500 mg in 250 mls @ 250 mls/hr 05/26/21 16:00 05/26/21 16:05 Zithromax 500 Mg/ 250 Ml Nacl Premix IV 06/25/21 15:59 250 mls/hr Q24H10 REHAN Administration Levothyroxine Sodium 100 mcg 05/27/21 10:00 Levothyroxine Sodium 100 Mcg Tablet PO 06/26/21 09:59 DAILY REHAN Losartan Potassium 50 mg 05/27/21 10:00 Losartan Potassium 50 Mg Tablet PO 06/26/21 09:59 DAILY REHAN Metoprolol Succinate 25 mg 05/27/21 10:00 Metoprolol Succinate 25 Mg Xl Tab PO 06/26/21 09:59 DAILY REHAN Miscellaneous Information 1 each 05/26/21 15:45 Medication Intervention 1 Each Each 06/25/21 15:44 .RN TO CHECK REHAN Pantoprazole Sodium 40 mg 05/27/21 10:00 Protonix (Pantoprazole) 40 Mg Tablet PO 06/26/21 09:59 DAILY REHAN Simethicone 80 mg 05/26/21 13:00 Simethicone 80 Mg Tab.Chew PO 06/25/21 12:59 QID PRN PRN GAS Simvastatin 40 mg 05/26/21 22:00 05/26/21 21:16 Simvastatin 20 Mg Tablet PO 06/25/21 21:59 40 mg HS REHAN Administration Discontinued Medications Generic Name Dose Route Start Last Admin Trade Name Freq PRN Reason Stop Dose Admin Pantoprazole Sodium 40 mg 05/26/21 14:00 05/26/21 13:37 Pantoprazole 40 Mg Vial IV 06/25/21 13:59 40 mg DAILY REHAN Administration Intake & Output (Last 24 hours) 05/24/21 05/25/21 05/26/21 05/27/21 11:59 11:59 11:59 11:59 Intake Total 2091 Output Total 2150 Balance -59 Weight 77.5 kg Laboratory Results (Last 24 hours) 05/26/21 05/26/21 05/26/21 15:00 15:00 12:45 WBC 13.3 H RBC 4.54 Hgb 14.7 Hct 46.1 MCV 101.5 H MCH 32.4 H MCHC 31.9 L RDW 13.3 Plt Count 290 MPV 11.0 Sodium 142 Potassium 3.9 Chloride 104 Carbon Dioxide 29 Anion Gap 13.0 BUN 12 Creatinine 1.29 H Estimated GFR 58.4 Glucose 142 H Calcium 9.0 Total Bilirubin 1.00 AST 26 ALT 17 Alkaline Phosphatase 67 Serum Total Protein 7.3 Albumin 4.1 SARS-CoV-2 (PCR) NEGATIVE Orders (Last 24 hours) Category Date Time Status Nursing [Miscellaneous Nursing Order] ROUTINE Care 05/26/21 13:[address] in Observation ROUTINE Care 05/26/21 12:28 Active Telemetry q6h Care 05/26/21 13:06 Active House Regular Diet Diet 05/26/21 Dinner Active CBC Routine Lab 05/26/21 15:00 Completed CMP Routine Lab 05/26/21 15:00 Completed ALPRAZolam 0.5 MG [xanAX 0.5 MG] Med 05/26/21 22:00 Active 0.5 mg PO HS Acetaminophen 325 mg [Tylenol 325 mg] Med 05/26/21 18:26 Active 650 mg PO Q4H PRN PRN Aspirin EC 81 mg [Ecotrin 81 mg] Med 05/27/21 10:00 Active 81 mg PO DAILY Azithromycin 500 mg/250 ml [Zithromax 500 MG/ 250 ML Med 05/26/21 16:00 Active NaCl Premix] 500 mg in 250 ml IV Q24H10 Ceftriaxone 1 GM/50 ML PREMIX* [ROCEPHIN 1 Gm-D5w 50 ml Med 05/26/21 16:00 Active Bag] 1 g in 50 ml IV Q24H10 Famotidine 20 mg Vial [Pepcid 20 MG VIAL] Med 05/26/21 14:00 Active 20 mg IV Q12HT Gabapentin 100 mg [Neurontin 100 MG] Med 05/27/21 10:00 Active 100 mg PO DAILY Levothyroxine Sodium 100 Mcg [Synthroid 100 Mcg] Med 05/27/21 10:00 Active 100 mcg PO DAILY Losartan Potassium 50 mg [Cozaar 50 MG] Med 05/27/21 10:00 Active 50 mg PO DAILY Medication Intervention Med 05/26/21 15:45 Active 1 each MC .RN TO CHECK Metoprolol Succinate 25 mg Xl* [Toprol-Xl 25MG Tablets* Med 05/27/21 10:00 Active ] 25 mg PO DAILY NaCl 0.9% 1000 ml [Sodium Chloride 0.9% 1000 ML] 1,000 Med 05/26/21 13:00 Active ml IV 50 mls/hr PANTOPRAZOLE 40 mg Tablet [Protonix 40MG Tablet] Med 05/27/21 10:00 Active 40 mg PO DAILY Pantoprazole 40 mg [Protonix 40 mg IV] Med 05/26/21 14:00 Discontinued 40 mg IV DAILY Simethicone 80 mg [Mylicon 80MG] Med 05/26/21 13:00 Active 80 mg PO QID PRN PRN Simvastatin 20Mg [Zocor 20Mg] Med 05/26/21 22:00 Active 40 mg PO HS Oxygen Nasal Cannula 2 lpm RT 05/27/21 04:29 Active Pulse Oximetry .continuos RT 05/26/21 15:10 Active Respiratory Therapy Consult ONCE RT 05/26/21 14:38 Completed Patient Care Notes (Last 24 hours) 05/26/21 13:17 Nursing Note by BENJAMIN DOUGLASS PT COUNTED $526 FROM [facility] IN FRONT OF Cindy DOUGLASS RN, Veronika LORA RN AND Jacinta SEN RN. [facility] THEN PLACED IN SECUR-ID PATIENT PROPERTY BAG AND PLACED IN ADMINISTRATION. Initialized on 05/26/21 13:17 - END OF NOTE Code(s): J18.9 - PNEUMONIA, UNSPECIFIED ORGANISM
[2021-05-27] MEDS: Neurontin 100 MG PO SCH (09:04)
[2021-05-27] MEDS: Cozaar 50 MG PO SCH (09:04)
[2021-05-27] MEDS: Protonix 40MG Tablet PO SCH (09:04)
[2021-05-27] MEDS: ECOTRIN 81 MG PO SCH (09:04)
[2021-05-27] MEDS: Toprol-Xl 25MG Tablets PO SCH (09:04)
[2021-05-27] MEDS: Pepcid 20 MG VIAL IV SCH ×2 (09:04→21:14)
[2021-05-27] MEDS: SYNTHROID 100 MCG PO SCH (09:04)
[2021-05-27] MEDS: Sodium Chloride 0.9% 1000 ML 1,000 ML IV SCH (09:08)
[2021-05-27] MEDS: ROCEPHIN 1 Gm-D5w 50 ml Bag** 1 G/50 ML IVPB IV SCH (09:08)
[2021-05-27] MEDS: xanAX 0.5 MG PO PRN ×2 (09:34→21:14)
[2021-05-27] MEDS: Zithromax 500 MG/ 250 ML NaCl Premix 500 MG/250 ML IVPB IV SCH (09:51)
[2021-05-27] MEDS ORDERED: NON-FORMULARY ITEM (Levothyroxine Sodium [Levothyroxine Sodium] 137 MCG Tablet) PO SCH (10:00)
[2021-05-27] MEDS ORDERED: TOFACITINIB CITRATE 11 MG PO SCH (10:00)
[2021-05-27] MEDS ORDERED: NON-FORMULARY ITEM (Aspirin [Aspirin] 81 MG Tablet) PO SCH (10:00)
[2021-05-27] MEDS: ZOCOR 20MG PO SCH (21:14)
[2021-05-28] MEDS: Sodium Chloride 0.9% 1000 ML 1,000 ML IV SCH (07:35)
[2021-05-28 08:02] VITALS: BP 142/73; PULSE 75; O2SAT 93
[2021-05-28] MEDS: Protonix 40MG Tablet PO SCH (08:30)
[2021-05-28] MEDS: Pepcid 20 MG VIAL IV SCH (08:30)
[2021-05-28] MEDS: Neurontin 100 MG PO SCH (08:30)
[2021-05-28] MEDS: Toprol-Xl 25MG Tablets PO SCH (08:30)
[2021-05-28] MEDS: SYNTHROID 100 MCG PO SCH (08:30)
[2021-05-28] MEDS: Cozaar 50 MG PO SCH (08:30)
[2021-05-28] MEDS: ECOTRIN 81 MG PO SCH (08:30)
[2021-05-28] MEDS: ROCEPHIN 1 Gm-D5w 50 ml Bag** 1 G/50 ML IVPB IV SCH (09:10)
[2021-05-28] MEDS: Zithromax 500 MG/ 250 ML NaCl Premix 500 MG/250 ML IVPB IV SCH (09:49)
--- NOTE | 2021-06-01 19:34 | PCM.DS ---
Discharge Summary Date of Admission: 05/26/21 12:28 Admitting Physician: ASHIA LUNDBERG Primary Care Provider: ASHIA LUNDBERG Allergies Allergies Penicillins Allergy (Intermediate, Verified 11/06/20 08:52) [facility] Summary - Hospital Course Hospital Course: Chief Complaint Diagnosis COPD EXACERBATION Allergies Allergy/AdvReac Type Severity Reaction Status Date / Time Penicillins Allergy Intermediate Hives Verified 11/06/20 08:52 Home Medications Medication Instructions Recorded Confirmed Last Taken Type Gabapentin 100 mg [Neurontin 100 mg PO DAILY 05/26/21 05/26/21 05/26/21 History 100 MG] Losartan Potassium 50 mg 50 mg PO DAILY 05/26/21 05/26/21 05/26/21 History [Cozaar 50 MG] PANTOPRAZOLE 40 mg Tablet 40 mg PO DAILY 05/26/21 05/26/21 05/26/21 History [Protonix 40MG Tablet] Ipratropium/Albuterol Sulfate 2 puff IH QID #1 unit 05/28/21 Unknown Rx [Combivent Inhaler] Levofloxacin [Levaquin] 500 mg PO DAILY 5 Days #5 tablet 05/28/21 Unknown Rx Methylprednisolone Packet 4 mg PO UD #1 packet 05/28/21 Unknown Rx [Medrol Dosepack] Current Medications Discontinued Medications Generic Name Dose Route Start Last Admin Trade Name Freq PRN Reason Stop Dose Admin Acetaminophen 650 mg 05/26/21 18:26 05/26/21 18:29 Acetaminophen 325 Mg Tablet PO 06/25/21 18:25 650 mg Q4H PRN PRN Administration PAIN AND/OR FEVER Alprazolam 0.5 mg 05/26/21 22:00 05/26/21 21:16 Alprazolam 0.5 Mg Tablet PO 06/25/21 21:59 0.5 mg HS REHAN Administration Alprazolam 0.5 mg 05/27/21 09:21 05/27/21 21:14 Alprazolam 0.5 Mg Tablet PO 06/26/21 09:29 0.5 mg TIDPRN PRN Administration ANXIETY Aspirin 81 mg 05/27/21 10:00 05/28/21 08:30 Aspirin 81 Mg Tablet.Ec PO 06/26/21 09:59 81 mg DAILY REHAN Administration Famotidine 20 mg 05/26/21 14:00 05/28/21 08:30 Famotidine 20 Mg/1 Vial IV 06/25/21 13:59 20 mg Q12HT REHAN Administration Gabapentin 100 mg 05/27/21 10:00 05/28/21 08:30 Gabapentin 100 Mg Capsule PO 06/26/21 09:59 100 mg DAILY REHAN Administration Sodium Chloride 1,000 mls @ 50 mls/hr 05/26/21 13:00 05/28/21 07:35 Sodium Chloride 0.9% 1000 Ml IV 06/25/21 12:59 50 mls/hr .Q20H REHAN Administration Ceftriaxone Sodium/Dextrose 1 g in 50 mls @ 100 mls/hr 05/26/21 16:00 05/28/21 09:10 Rocephin 1 Gm-D5w 50 Ml Bag IV 05/29/21 15:59 100 mls/hr Q24H10 REHAN Administration Azithromycin 500 mg in 250 mls @ 250 mls/hr 05/26/21 16:00 05/28/21 09:49 Zithromax 500 Mg/ 250 Ml Nacl Premix IV 06/25/21 15:59 250 mls/hr Q24H10 REHAN Administration Levothyroxine Sodium 100 mcg 05/27/21 10:00 05/28/21 08:30 Levothyroxine Sodium 100 Mcg Tablet PO 06/26/21 09:59 100 mcg DAILY REHAN Administration Losartan Potassium 50 mg 05/27/21 10:00 05/28/21 08:30 Losartan Potassium 50 Mg Tablet PO 06/26/21 09:59 50 mg DAILY REHAN Administration Metoprolol Succinate 25 mg 05/27/21 10:00 05/28/21 08:30 Metoprolol Succinate 25 Mg Xl Tab PO 06/26/21 09:59 25 mg DAILY REHAN Administration Miscellaneous Information 1 each 05/26/21 15:45 Medication Intervention 1 Each Each 06/25/21 15:44 .RN TO CHECK REHAN Pantoprazole Sodium 40 mg 05/26/21 14:00 05/26/21 13:37 Pantoprazole 40 Mg Vial IV 06/25/21 13:59 40 mg DAILY REHAN Administration Pantoprazole Sodium 40 mg 05/27/21 10:00 05/28/21 08:30 Protonix (Pantoprazole) 40 Mg Tablet PO 06/26/21 09:59 40 mg DAILY REHAN Administration Simethicone 80 mg 05/26/21 13:00 Simethicone 80 Mg Tab.Chew PO 06/25/21 12:59 QID PRN PRN GAS Simvastatin 40 mg 05/26/21 22:00 05/27/21 21:14 Simvastatin 20 Mg Tablet PO 06/25/21 21:59 40 mg HS REHAN Administration - Vitals & Intake/Output Vital Signs: Vital Signs Temperature 98.7 F 05/28/21 08:00 Pulse Rate 75 05/28/21 08:00 Respiratory Rate 17 05/28/21 08:00 Blood Pressure 142/73 05/28/21 08:00 O2 Sat by Pulse Oximetry 93 L 05/28/21 08:00 - Lab Result Diagrams: 05/26/21 15:00 05/26/21 15:00 - Procedures and Test Procedures and Tests throughout Hospitalization: Therapy Orders & Screens 05/26/21 14:38 Respiratory Therapy Consult ONCE Comment: Reason For Exam: Diagnosis: COPD EXACERBATION 05/27/21 04:29 Oxygen Nasal Cannula 2 lpm Comment: Diagnosis: COPD EXACERBATION Discharge Exam General Appearance: no apparent distress, alert Neurologic Exam: alert, oriented x 3, cooperative, normal mood/affect, nml cerebellar function, sensation nml, No motor deficits Eye Exam: PERRL, EOMI, eyes nml inspection Ears, Nose, Throat Exam: normal ENT inspection, pharynx normal, moist mucous membranes Neck Exam: normal inspection, non-tender, supple, full range of motion Respiratory Exam: normal breath sounds, lungs clear, No respiratory distress Cardiovascular Exam: regular rate/rhythm, normal heart sounds Gastrointestinal/Abdomen Exam: soft, No tenderness, No mass Male Genitalia Exam: deferred Rectal Exam: deferred Back Exam: normal inspection, normal range of motion, No CVA tenderness, No vertebral tenderness Extremity Exam: normal inspection, normal range of motion Skin Exam: normal color, warm, dry Final Diagnosis/Problem List - Final Discharge Diagnosis/Problem (1) Pneumonia Status: Acute Priority: High Assessment & Plan: Last Vital Signs Temp 98.7 F 05/28/21 08:00 Pulse 75 05/28/21 08:00 Resp 17 05/28/21 08:00 BP 142/73 05/28/21 08:00 Pulse Ox 93 L 05/28/21 08:00 Allergies Penicillins Allergy (Intermediate, Verified 11/06/20 08:52) Hives Chief Complaint Diagnosis COPD EXACERBATION Allergies Allergy/AdvReac Type Severity Reaction Status Date / Time Penicillins Allergy Intermediate Hives Verified 11/06/20 08:52 Home Medications Medication Instructions Recorded Confirmed Last Taken Type Gabapentin 100 mg [Neurontin 100 mg PO DAILY 05/26/21 05/26/21 05/26/21 History 100 MG] Losartan Potassium 50 mg 50 mg PO DAILY 05/26/21 05/26/21 05/26/21 History [Cozaar 50 MG] PANTOPRAZOLE 40 mg Tablet 40 mg PO DAILY 05/26/21 05/26/21 05/26/21 History [Protonix 40MG Tablet] Ipratropium/Albuterol Sulfate 2 puff IH QID #1 unit 05/28/21 Unknown Rx [Combivent Inhaler] Levofloxacin [Levaquin] 500 mg PO DAILY 5 Days #5 tablet 05/28/21 Unknown Rx Methylprednisolone Packet 4 mg PO UD #1 packet 05/28/21 Unknown Rx [Medrol Dosepack] Current Medications Discontinued Medications Generic Name Dose Route Start Last Admin Trade Name Freq PRN Reason Stop Dose Admin Acetaminophen 650 mg 05/26/21 18:26 05/26/21 18:29 Acetaminophen 325 Mg Tablet PO 06/25/21 18:25 650 mg Q4H PRN PRN Administration PAIN AND/OR FEVER Alprazolam 0.5 mg 05/26/21 22:00 05/26/21 21:16 Alprazolam 0.5 Mg Tablet PO 06/25/21 21:59 0.5 mg HS REHAN Administration Alprazolam 0.5 mg 05/27/21 09:21 05/27/21 21:14 Alprazolam 0.5 Mg Tablet PO 06/26/21 09:29 0.5 mg TIDPRN PRN Administration ANXIETY Aspirin 81 mg 05/27/21 10:00 05/28/21 08:30 Aspirin 81 Mg Tablet.Ec PO 06/26/21 09:59 81 mg DAILY REHAN Administration Famotidine 20 mg 05/26/21 14:00 05/28/21 08:30 Famotidine 20 Mg/1 Vial IV 06/25/21 13:59 20 mg Q12HT REHAN Administration Gabapentin 100 mg 05/27/21 10:00 05/28/21 08:30 Gabapentin 100 Mg Capsule PO 06/26/21 09:59 100 mg DAILY REHAN Administration Sodium Chloride 1,000 mls @ 50 mls/hr 05/26/21 13:00 05/28/21 07:35 Sodium Chloride 0.9% 1000 Ml IV 06/25/21 12:59 50 mls/hr .Q20H REHAN Administration Ceftriaxone Sodium/Dextrose 1 g in 50 mls @ 100 mls/hr 05/26/21 16:00 05/28/21 09:10 Rocephin 1 Gm-D5w 50 Ml Bag IV 05/29/21 15:59 100 mls/hr Q24H10 REHAN Administration Azithromycin 500 mg in 250 mls @ 250 mls/hr 05/26/21 16:00 05/28/21 09:49 Zithromax 500 Mg/ 250 Ml Nacl Premix IV 06/25/21 15:59 250 mls/hr Q24H10 REHAN Administration Levothyroxine Sodium 100 mcg 05/27/21 10:00 05/28/21 08:30 Levothyroxine Sodium 100 Mcg Tablet PO 06/26/21 09:59 100 mcg DAILY REHAN Administration Losartan Potassium 50 mg 05/27/21 10:00 05/28/21 08:30 Losartan Potassium 50 Mg Tablet PO 06/26/21 09:59 50 mg DAILY REHAN Administration Metoprolol Succinate 25 mg 05/27/21 10:00 05/28/21 08:30 Metoprolol Succinate 25 Mg Xl Tab PO 06/26/21 09:59 25 mg DAILY REHAN Administration Miscellaneous Information 1 each 05/26/21 15:45 Medication Intervention 1 Each Each 06/25/21 15:44 .RN TO CHECK REHAN Pantoprazole Sodium 40 mg 05/26/21 14:00 05/26/21 13:37 Pantoprazole 40 Mg Vial IV 06/25/21 13:59 40 mg DAILY RHEAN Administration Pantoprazole Sodium 40 mg 05/27/21 10:00 05/28/21 08:30 Protonix (Pantoprazole) 40 Mg Tablet PO 06/26/21 09:59 40 mg DAILY REHAN Administration Simethicone 80 mg 05/26/21 13:00 Simethicone 80 Mg Tab.Chew PO 06/25/21 12:59 QID PRN PRN GAS Simvastatin 40 mg 05/26/21 22:00 05/27/21 21:14 Simvastatin 20 Mg Tablet PO 06/25/21 21:59 40 mg HS REHAN Administration Code(s): J18.9 - PNEUMONIA, UNSPECIFIED ORGANISM - Discharge Discharge Date: 05/28/21 Disposition: Home, Self-Care Condition: Stable Prescriptions: New Levofloxacin [Levaquin] 500 mg PO DAILY 5 Days #5 tablet Ipratropium/Albuterol Sulfate [Combivent Inhaler] 2 puff IH QID #1 unit Methylprednisolone Packet [Medrol Dosepack] 4 mg PO UD #1 packet Continue Pravastatin Sodium 40 mg PO HS Levothyroxine Sodium 100 mcg PO DAILY Aspirin 81 mg PO DAILY #30 tablet Metoprolol Succinate 25 mg Xl* [Toprol-Xl 25MG Tablets] 25 mg PO DAILY ALPRAZolam 0.5 MG [xanAX 0.5 MG] 0.5 mg PO TIDPRN Tofacitinib Citrate [Xeljanz Xr] 11 mg PO DAILY Gabapentin 100 mg [Neurontin 100 MG] 100 mg PO DAILY Losartan Potassium 50 mg [Cozaar 50 MG] 50 mg PO DAILY PANTOPRAZOLE 40 mg Tablet [Protonix 40MG Tablet] 40 mg PO DAILY Instructions: Pneumonia, Adult (DC), Oxygen Therapy, Adult (DC) Additional Instructions: WEAR 2L/NC AT ALL TIMES AT HOME. CALL [facility] AT [phone] WHEN YOU GET HOME TO HAVE YOUR HOME CONCENTRATOR DELIVERED PRESCRIPTION FOR LEVAQUIN CALLED IN TO [facility]. Follow up with: ASHIA LUNDBERG MD [Primary Care Provider] - 06/04/21 3:15 pm (at [facility] )
== END 2021-05-28 11:21 | disposition home or self-care (01) ==
LOC: MED SURG 12:28
PROVIDERS: ADMIT General Practice; ATTEND General Practice
DX: J44.0 Chronic obstructive pulmonary disease with (acute) lower respiratory infection (principal); J15.3 Pneumonia due to streptococcus, group B; J20.9 Acute bronchitis, unspecified; Z20.822 Contact with and (suspected) exposure to COVID-19; Z79.899 Other long term (current) drug therapy
CPT/HCPCS: 36415; 71046; 80053; 85027; 93268; 94762; J0456; J0696; U0003; A9270-GY; G0378

== ENCOUNTER 2021-06-11 05:58 | Day surgery (SDC) | payer MEDICARE, OTHER ==
[2021-06-11] MEDS: Lactated Ringers 1,000 ML IV SCH (06:24)
[2021-06-11] MEDS ORDERED: Versed 2 MG/2 ML Injection ONE (07:10)
[2021-06-11] MEDS: Versed 2 MG/2 ML Injection IV ONE (07:11)
[2021-06-11] MEDS ORDERED: Xylocaine-Mpf 2% 5 Ml Vial ONE (07:55)
[2021-06-11] MEDS ORDERED: DIPRIVAN 200 MG/20 ML IV ONE (07:55)
--- NOTE | 2021-06-11 09:52 | OP ---
SURGERY DATE/TIME: 06/11/2021 0800 PREOPERATIVE DIAGNOSIS: Dyspepsia and bloating. POSTOPERATIVE DIAGNOSIS: Moderate gastritis. PROCEDURE: Esophagogastroduodenoscopy with cold forceps biopsy. SURGEON: Dr. Copeland. ANESTHESIA: Medications were given by the anesthesia department. BRIEF HISTORY: The patient is a 71-year-old white male patient who reports he has been having a lot of problems with bloating and upset stomach over the past three weeks. He reports he had pneumonia about that time but has not resolved event with proton pump inhibitor medication. The patient was described the risks of the procedure including the risk of perforation, phlebitis, untoward reaction to medication, bleeding, sore throat and vocal cord injury. The patient verbalized his understanding and desired to have the procedure performed. DESCRIPTION OF PROCEDURE: The patient was given the medications by the anesthesia department. He had continuous pulse oximetry, ECG monitoring, intermittent blood pressure monitoring and tidal CO2 monitoring during the examination. He was placed in the left lateral decubitus position. A bite block was placed and the flexible Olympus gastroscope was used to intubate the oropharynx. A view of the larynx was obtained and was normal. The scope was easily introduced in the esophagus which appeared to be normal throughout its length. The stomach was entered where normal gastric rugal folds were seen and these distended nicely with insufflation of air. The scope was passed along the greater curvature of the stomach to the antrum which appeared to be moderately erythematous but no erosions or ulcerations were noted. The pylorus was encountered and intubated. The first, second and third portions of the duodenum were all inspected and found to be essentially normal. The scope is withdrawn towards the stomach again. A retroflex view of the lesser curvature, fundus and cardia regions of the stomach appeared to be normal. The scope was then redirected towards the gastric antrum. Biopsies were obtained to rule out the presence of Helicobacter pylori-type organisms and confirm the presence of gastritis and also to rule out chemical gastropathy.
[2021-06-14 16:44] VITALS: BP 144/82; PULSE 80; O2SAT 94
== END 2021-06-11 09:30 | disposition home or self-care (01) ==
LOC: SDC 05:58
PROVIDERS: ATTEND Family Medicine
DX: K29.70 Gastritis, unspecified, without bleeding (principal); R14.0 Abdominal distension (gaseous); R10.13 Epigastric pain
CPT/HCPCS: 99100; J2250; J2704

== ENCOUNTER 2021-10-18 10:31 | Emergency (ER) | payer MEDICARE ==
[2021-10-18] MEDS ORDERED: BABY ASPIRIN 81 MG CHEW PO ONE (10:55)
[2021-10-18] MEDS ORDERED: BABY ASPIRIN 81 MG CHEW ONE (10:57)
[2021-10-18 11:04] LABS: Absolute Neutrophil Ct (ANC) 5.23 (1.4-6.9); Basophil (Absolute #) 0.02 (0-0.4); Eosinophil % 2.4 % (0.00-5.0); Hematocrit 47.1 % (42-50); Hemoglobin 15.4 gm/dl (12.5-18.0); Lymphocyte (Absolute #) 1.69 (1.0-4.6); Lymphocytes % 20.2 % (24.0-44.0); Mean Cell Volume 101.3 fl (78-100); Mean Corpuscular Hemoglobin 33.1 pg (26-32); Mean Corpuscular Hgb Concent. 32.7 g/dl (32-36); Mean Platelet Volume 10.7 fl (7.5-11.0); Monocyte (Absolute #) 1.24 (0.0-1.3); Monocytes % 14.8 % (0.0-12.0); Neutrophil % 62.4 % (36.0-66.0); Platelet Count 354 K/mm3 (150-450); Red Blood Count 4.65 M/mm3 (4.1-5.6); Red Cell Distribution Width 13.1 % (11.5-14.0); White Blood Count 8.4 K/mm3 (4.0-10.5)
--- NOTE | 2021-10-18 11:04 | ERPHSYRPT ---
- History of Present Illness Source: patient Exam Limitations: no limitations Patient Subjective Stated Complaint: PT HERE FOR CHEST PAIN TO LEFT SIDE OF CHEST SINCE THIS AM, NO OTHER SYMPTOMS, PT HAS HX OF CARIDAC Triage Nursing Assessment: PT ALERT, RESP EASY,AUDIBLE WHEEZES NOTED, FACE MASK IN PLACE, SKIN W/D/P Physician History: 71 yo wm w superior mid-sternal chest pain which is described as sharp and is currently rated a 0 but has been up to a an 8. Pain only lasts seconds and started 2 hours ago. He has had mild dyspnea w it but denies N/V/Diaphoresis. Pt has a h/o IL/CAD but denies DM/HTN/Hyperlipidemia. He smoked 1ppd until 25yrs ago. Pt states that he had a cath but no stents after IL. Timing/Duration: other (2 hours) Activities at Onset: rest Quality: sharpness Location: substernal (superior) Chest Pain Radiation: no radiation Severity of Pain-Max: severe Severity of Pain-Current: none Modifying Factors: Improves With: nothing Nitro Today/Relief: no nitro taken today Aspirin Treatment Today: 81 mg x 1 Associated Symptoms: shortness of breath, chest pain, No nausea, No vomiting, No abdominal pain, No heartburn, No diaphoresis, No cough, No chills, No fever, No headaches, No loss of appetite, No malaise, No rash, No syncope, No seizure, No weakness Prior Chest Pain/Cardiac Workup: cardiac cath Allergies/Adverse Reactions: Penicillins Allergy (Intermediate, Verified 10/18/21 10:41) Hives Home Medications: Levothyroxine Sodium 125 mcg PO DAILY 09/28/13 [History] Pravastatin Sodium 40 mg PO HS 09/28/13 [History] ALPRAZolam 0.5 MG [xanAX 0.5 MG] 0.5 mg PO TIDPRN 02/22/18 [History] Metoprolol Succinate 25 mg Xl* [Toprol-Xl 25MG Tablets] 25 mg PO DAILY 02/22/18 [History] Tofacitinib Citrate [Xeljanz Xr] 11 mg PO DAILY 02/22/18 [History] Losartan Potassium 50 mg [Cozaar 50 MG] 50 mg PO DAILY 05/26/21 [History] Aspirin 81 gm Chew [Baby Aspirin 81 mg Chew] 1 ea DAILY 10/18/21 [History] Fluticasone/Umeclidin/Vilanter [Trelegy Ellipta 100-62.5-25] 1 ea DAILY 10/18/21 [History] Hx Tetanus, Diphtheria Vaccination/Date Given: No Hx Influenza Vaccination/Date Given: No Hx Pneumococcal Vaccination/Date Given: No Immunizations Up to Date: Yes Travel Risk - International Travel Have you traveled outside of the country in past 3 weeks: No - Coronavirus Screening Are you exhibiting any of the following symptoms?: No Close contact with a COVID-19 positive Pt in past 14-21 Days: No - Vaccine Status Have you recieved a Covid-19 vaccination: Yes 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 - Vaccination Dates Date of 2cond Vaccination (if applicable): apr - Review of Systems Constitutional: No Symptoms Eyes: No Symptoms Ears, Nose, & Throat: No Symptoms Respiratory: No Symptoms, Dyspnea Cardiac: No Symptoms, Chest Pain Abdominal/Gastrointestinal: No Symptoms Genitourinary Symptoms: No Symptoms Musculoskeletal: No Symptoms Skin: No Symptoms Neurological: No Symptoms Psychological: No Symptoms Endocrine: No Symptoms Hematologic/Lymphatic: No Symptoms Immunological/Allergic: No Symptoms - Past Medical History Pertinent Past Medical History: Yes Neurological History: No Pertinent History ENT History: No Pertinent History Cardiac History: Coronary Artery Disease, High Cholesterol, Hypertension, Myocardial Infarction ([place]) Respiratory History: COPD, Pneumonia Endocrine Medical History: Hypothyroidism Musculoskeletal History: Rheumatoid Arthritis GI Medical History: GERD History: No Pertinent History Psycho-Social History: No Pertinent History Male Reproductive Disorders: No Pertinent History Other Medical History: heart cath jun 10 - Past Surgical History Past Surgical History: Yes Neuro Surgical History: No Pertinent History Cardiac: Cardiac Catheterization Respiratory: No Pertinent History Gastrointestinal: No Pertinent History Genitourinary: No Pertinent History Musculoskeletal: Orthopedic Surgery Male Surgical History: No Pertinent History Other Surgical History: RIGHT KNEE FIX 25 YRS AGO,EGD,. Left and right foot surgery. L hand. - Social History Smoking Status: Former smoker How long have you smoked: 45 years Exposure to second hand smoke: No Drug Use: none Patient Lives Alone: No Significant Family History: no pertinent family hx - Nursing Vital Signs Nursing Vital Signs: Initial Vital Signs Temperature 97.4 F 10/18/21 10:32 Pulse Rate 83 10/18/21 10:32 Respiratory Rate 18 10/18/21 10:32 Blood Pressure 158/96 10/18/21 10:32 O2 Sat by Pulse Oximetry 97 10/18/21 10:32 Pain Scale Pain Intensity 0 Hypertensive - Physical Exam General Appearance: no apparent distress Eye Exam: PERRL/EOMI, eyes nml inspection Ears, Nose, Throat Exam: normal ENT inspection, TMs normal, pharynx normal, moist mucous membranes Neck Exam: normal inspection, non-tender, supple, full range of motion, No meningismus, No mass, No Brudzinski, No Kernig's, No carotid bruit Respiratory Exam: airway intact, wheezing (Occ B) Cardiovascular Exam: regular rate/rhythm, normal heart sounds, normal peripheral pulses, capillary refill <2 sec, No murmur Gastrointestinal/Abdomen Exam: soft, normal bowel sounds, No tenderness Back Exam: normal inspection, normal range of motion Extremity Exam: normal inspection, normal range of motion Neurologic Exam: alert, oriented x 3, 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, 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, normal mood/affect, nml cerebellar function, nml station & gait, sensation nml, No motor deficits, No sensory deficit Skin Exam: normal color, warm, dry Lymphatic Exam: No adenopathy SpO2 Interpretation: normal SpO2: 97 O2 Delivery: Room Air - Course Nursing assessment & vital signs reviewed: Yes EKG Interpreted by Me: RATE (NSR/R83/Normal QT-Qtc/Flat T waves) - Radiology Exams Chest X-ray Interpretation: Discussed w/ radiologist (CXR-NAD) Ordered Tests: Active Orders 24 hr Category Date Time Status EKG-ER Only STAT Care 10/18/21 10:56 Completed CHEST 1 VIEW (PORTABLE) Stat Exams 10/18/21 10:57 Completed CBC W DIFF Stat Lab 10/18/21 11:02 Completed CMP Stat Lab 10/18/21 11:02 Completed PROTIME WITH INR Stat Lab 10/18/21 11:02 Completed PTT Stat Lab 10/18/21 11:02 Completed TROPONIN Q3H Lab 10/18/21 11:02 Completed TROPONIN Q3H Lab 10/18/21 13:25 Completed TROPONIN Q3H Lab 10/18/21 17:00 Ordered TROPONIN Q3H Lab 10/18/21 20:00 Ordered TROPONIN Q3H Lab 10/18/21 23:00 Ordered Medication Summary Discontinued Medications Generic Name Dose Route Start Last Admin Trade Name Josiane PRN Reason Stop Dose Admin Aspirin 324 mg 10/18/21 10:55 10/18/21 10:58 Aspirin 81 Mg Tab.Chew PO 10/18/21 10:56 324 mg STAT ONE Administration Aspirin Confirm 10/18/21 10:57 Aspirin 81 Mg Tab.Chew Administered 10/18/21 10:58 Dose 324 mg .ROUTE .STK-MED ONE Lab/Rad Data: Laboratory Result Diagrams 10/18/21 11:02 10/18/21 11:02 Laboratory Results 10/18/21 10/18/21 10/18/21 Range/Units 13:25 11:02 11:02 WBC (4.0-10.5) K/mm3 RBC (4.1-5.6) M/mm3 Hgb (12.5-18.0) gm/dl Hct (42-50) % MCV (78-100) fl MCH (26-32) pg MCHC (32-36) g/dl RDW (11.5-14.0) % Plt Count (150-450) K/mm3 MPV (7.5-11.0) fl Gran % (36.0-66.0) % Eos # (Auto) (0-0.5) Absolute Lymphs (auto) (1.0-4.6) Absolute Monos (auto) (0.0-1.3) Lymphocytes % (24.0-44.0) % Monocytes % (0.0-12.0) % Eosinophils % (0.00-5.0) % Basophils % (0.0-0.4) % Absolute Granulocytes (1.4-6.9) Basophils # (0-0.4) PT 12.0 (9.4-12.5) SECONDS INR 1.02 (0.8-3.0) APTT 33.9 (25.1-36.5) SECONDS Sodium (137-145) mmol/L Potassium (3.5-5.1) mmol/L Chloride (98-107) mmol/L Carbon Dioxide (22-30) mmol/L Anion Gap (5-15) MEQ/L BUN (9-20) mg/dL Creatinine (0.66-1.25) mg/dL Estimated GFR ML/MIN Glucose (74-106) mg/dL Calcium (8.4-10.2) mg/dL Total Bilirubin (0.2-1.3) mg/dL AST (17-59) U/L ALT (0-50) U/L Alkaline Phosphatase (38-126) U/L Troponin I < 0.012 < 0.012 (0.000-0.034) ng/mL Serum Total Protein (6.3-8.2) g/dL Albumin (3.5-5.0) g/dL 10/18/21 10/18/21 Range/Units 11:02 11:02 WBC 8.4 (4.0-10.5) K/mm3 RBC 4.65 (4.1-5.6) M/mm3 Hgb 15.4 (12.5-18.0) gm/dl Hct 47.1 (42-50) % MCV 101.3 H (78-100) fl MCH 33.1 H (26-32) pg MCHC 32.7 (32-36) g/dl RDW 13.1 (11.5-14.0) % Plt Count 354 (150-450) K/mm3 MPV 10.7 (7.5-11.0) fl Gran % 62.4 (36.0-66.0) % Eos # (Auto) 0.20 (0-0.5) Absolute Lymphs (auto) 1.69 (1.0-4.6) Absolute Monos (auto) 1.24 (0.0-1.3) Lymphocytes % 20.2 L (24.0-44.0) % Monocytes % 14.8 H (0.0-12.0) % Eosinophils % 2.4 (0.00-5.0) % Basophils % 0.2 (0.0-0.4) % Absolute Granulocytes 5.23 (1.4-6.9) Basophils # 0.02 (0-0.4) PT (9.4-12.5) SECONDS INR (0.8-3.0) APTT (25.1-36.5) SECONDS Sodium 140 (137-145) mmol/L Potassium 4.2 (3.5-5.1) mmol/L Chloride 102 (98-107) mmol/L Carbon Dioxide 25 (22-30) mmol/L Anion Gap 17.2 H (5-15) MEQ/L BUN 15 (9-20) mg/dL Creatinine 1.12 (0.66-1.25) mg/dL Estimated GFR > 60.0 ML/MIN Glucose 127 H (74-106) mg/dL Calcium 9.3 (8.4-10.2) mg/dL Total Bilirubin 0.90 (0.2-1.3) mg/dL AST 35 (17-59) U/L ALT 32 (0-50) U/L Alkaline Phosphatase 62 (38-126) U/L Troponin I (0.000-0.034) ng/mL Serum Total Protein 7.6 (6.3-8.2) g/dL Albumin 4.6 (3.5-5.0) g/dL - Progress Progress: improved Progress Note: 10/18/21 11:50 Pt pain free throughout stay 10/18/21 14:[address] German, wants to send home w office follow up next week. Pt pain f ree upon discharge and understands discharge instructions. He will return to ER for any chest pain or shortness of breath. 10/18/21 16:35 Counseled pt/family regarding: lab results, diagnosis, need for follow-up, rad results - Departure Departure Disposition: Home Clinical Impression: Chest pain Condition: Stable Critical Care Time: No Referrals: ASHIA LUNDBERG MD [Primary Care Provider] - Follow up/PCP as directed Instructions: Angina (DC), Chest Pain (DC) Additional Instructions: Call office and get an appointment with Dr. August next week Return to ER for increasing/sustained chest pain or increasing shortness of breath
[2021-10-18 11:13] LABS: INR 1.02 (0.8-3.0)
--- NOTE | 2021-10-18 11:14 | XRAY ---
Indication: Chest pain. Comparison: May 26, 2021 Portable apical lordotic chest remains hyperinflated again with minimal left base subsegmental atelectasis/scarring and tiny bilateral calcified granulomas. Heart not enlarged. Bony thorax intact again with osteopenia and degenerative changes. Impression: Nonacute hyperinflated chest with chronic features.
[2021-10-18 11:15] LABS: ALBUMIN 4.6 g/dL (3.5-5.0); ALKALINE PHOSPHATASE 62 U/L (38-126); ANION GAP 17.2 MEQ/L (5-15); BLOOD UREA NITROGEN 15 mg/dL (9-20); CHLORIDE 102 mmol/L (98-107); Calcium 9.3 mg/dL (8.4-10.2); Carbon Dioxide 25 mmol/L (22-30); Creatinine 1 1.12 mg/dL (0.66-1.25); EST GLOMERULAR FILTRATION RATE > 60.0 ML/MIN; Glucose 127 mg/dL (74-106); Potassium 4.2 mmol/L (3.5-5.1); SGOT/AST 35 U/L (17-59); SGPT/ALT 32 U/L (0-50); SODIUM 140 mmol/L (137-145); Total Protein 7.6 g/dL (6.3-8.2)
[2021-10-18 11:16] LABS: PTT 33.9 SECONDS (25.1-36.5)
[2021-10-18 14:25] VITALS: BP 141/89; PULSE 64
[2021-10-18 16:36] VITALS: O2SAT 97
== END 2021-10-18 14:25 | disposition home or self-care (01) ==
LOC: ED 10:31
DX: R07.9 Chest pain, unspecified (principal); R06.00 Dyspnea, unspecified; E78.5 Hyperlipidemia, unspecified; I10 Essential (primary) hypertension; J44.9 Chronic obstructive pulmonary disease, unspecified; K21.9 Gastro-esophageal reflux disease without esophagitis; I25.10 Atherosclerotic heart disease of native coronary artery without angina pectoris
CPT/HCPCS: 36000; 36415; 71045; 80053; 84484; 85025; 85610; 85730; 93005; 99284; A9270-GY

== ENCOUNTER 2021-12-02 07:51 | Day surgery (SDC) | payer MEDICARE ==
--- NOTE | 2021-11-26 11:01 | HP ---
DATE OF SURGERY: 12/02/2021 HISTORY OF PRESENT ILLNESS: The patient is a 71-year-old male who presents with complaints of right upper quadrant pain. He reports stomach bloats and has been happening since January. There is some nausea at times. He said chili and whole milk makes this worse. The patient had seen GI at in August and they told him he had air in his colon, take Metamucil and this should all go away. He had a colonoscopy that showed a polyp. He did have a HIDA scan showed 28%. The ultrasound was fine. PAST MEDICAL HISTORY: Heart attack. Coronary artery disease. Hypertension. Anxiety. PAST SURGICAL HISTORY: Foot surgery. MEDICATIONS: Aspirin, losartan, metoprolol, alprazolam, pravastatin, levothyroxine, Trelegy, Xeljanz. ALLERGIES: PENICILLIN. FAMILY HISTORY: None. SOCIAL HISTORY: Former smoker. REVIEW OF SYSTEMS: CONSTITUTIONAL: Denies fever or chills. CHEST: Denies shortness of breath. CVS: Denies chest pain. ABDOMEN: Reports right upper quadrant pain, nausea. Denies diarrhea, constipation or rectal bleeding. PHYSICAL EXAMINATION: GENERAL: No acute distress. CHEST: Nonlabored. No shortness of breath. CVS: Regular rate and rhythm. ABDOMEN: Soft. IMPRESSION: Biliary dyskinesia. PLAN: Laparoscopic cholecystectomy with Dr. Tray Moscoso. As dictated by Solange Marin NP.
[~2021-12-02 07:51] MED LIST changes: -BUPIVACAINE 0.5% VIAL IJ ONE; +Sensorcaine 0.25% 10 ML ONE; -XYLOCAINE 1% HCL 20 ML MDV ONE
[2021-12-02] MEDS ORDERED: Levofloxacin 500MG/100ML D5W 500 MG/100 ML BAG IV ONE (08:24)
[2021-12-02] MEDS ORDERED: CLINDAMYCIN-D5W 900 MG/50 ML*** 900 MG/50 ML BAG IV ONE (08:24)
[2021-12-02] MEDS ORDERED: Lactated Ringers 1,000 ML IV ONE (08:24)
[2021-12-02] MEDS ORDERED: Levofloxacin 500MG/100ML D5W 500 MG/100 ML BAG IV SCH (08:30)
[2021-12-02] MEDS ORDERED: CLINDAMYCIN-D5W 900 MG/50 ML*** 900 MG/50 ML BAG IV SCH (08:30)
[2021-12-02] MEDS ORDERED: Lactated Ringers 1,000 ML IV SCH (08:30)
[2021-12-02] MEDS ORDERED: Versed 2 MG/2 ML Injection ONE (10:01)
[2021-12-02] MEDS ORDERED: SUBLIMAZE 250 MCG/5 ML ONE (10:01)
[2021-12-02] MEDS ORDERED: DIPRIVAN 200 MG/20 ML IV ONE (10:01)
[2021-12-02] MEDS ORDERED: Zemuron 100 MG/10 ML ONE (10:01)
[2021-12-02] MEDS ORDERED: Sodium Chloride 0.9% 1000 ML 1,000 ML ONE (10:04)
[2021-12-02] MEDS ORDERED: Zofran 4 MG/2 ML VIAL ONE ×2 (11:00→16:42)
[2021-12-02] MEDS ORDERED: BRIDION 200MG/2ML IV ONE (11:01)
[2021-12-02] MEDS ORDERED: NORCO 5/325 MG PO PRN (12:15)
[2021-12-02] MEDS ORDERED: MORPHINE SULFATE 4 MG INJ IV ONE (12:17)
[2021-12-02] MEDS ORDERED: Compazine 10 MG/2 ML IV ONE (12:18)
[2021-12-02] MEDS ORDERED: Compazine 10 MG/2 ML ONE (12:21)
--- NOTE | 2021-12-02 12:46 | OP ---
SURGERY DATE/TIME: 12/02/2021 1016 PREOPERATIVE DIAGNOSIS: Gallbladder dyskinesia. POSTOPERATIVE DIAGNOSIS: Gallbladder dyskinesia. PROCEDURE: Laparoscopic cholecystectomy. SURGEON: Dr. Tray Moscoso. ANESTHESIA: General endotracheal tube. ESTIMATED BLOOD LOSS: None. COMPLICATIONS: None. CONDITION: Stable. INDICATIONS: A patient with upper abdominal pain. HIDA scan positive. Seen and examined. Procedure discussed and wished to proceed. DESCRIPTION OF PROCEDURE AND FINDINGS: Taken to surgery. General anesthetic, routine prep and drape. Veress needle inserted. Opening pressure of 1, insufflating pressure 14. There was a distended gallbladder. Cystic duct defined. Cystic artery defined. Both structures triply clipped and transected. Clips noted across and well approximated. Gallbladder rolled out of gallbladder fossa. The gallbladder delivered through umbilical port. Hole closure device used with 0 Vicryl. Skin closed with 4-0 Vicryl and Steri-Strips. The patient tolerated the procedure satisfactorily.
--- NOTE | 2021-12-02 14:06 | XRAY ---
Indication: Crackles in lung bases. Comparison: October 18, 2021. Portable apical lordotic chest again hyperinflated with slight worsening mild left base infiltrate/atelectasis. No consolidation or large effusion. Remaining heart and lungs unremarkable again with incidental bilateral pulmonary/hilar calcified granulomas.
[2021-12-02] MEDS ORDERED: DUONEB 0.5-3 MG/3 ml Neb IH ONE (14:46)
[2021-12-02 16:06] LABS: Hematocrit 43.1 % (42-50); Mean Cell Volume 102.9 fl (78-100); Mean Corpuscular Hemoglobin 33.4 pg (26-32); Mean Corpuscular Hgb Concent. 32.5 g/dl (32-36); Mean Platelet Volume 10.8 fl (7.5-11.0); Platelet Count 250 K/mm3 (150-450); Red Blood Count 4.19 M/mm3 (4.1-5.6); Red Cell Distribution Width 13.3 % (11.5-14.0); White Blood Count 12.8 K/mm3 (4.0-10.5)
[2021-12-02 16:19] LABS: ALKALINE PHOSPHATASE 70 U/L (38-126); ANION GAP 10.4 MEQ/L (5-15); BLOOD UREA NITROGEN 13 mg/dL (9-20); CHLORIDE 104 mmol/L (98-107); Calcium 8.4 mg/dL (8.4-10.2); Carbon Dioxide 27 mmol/L (22-30); Creatinine 1 0.95 mg/dL (0.66-1.25); EST GLOMERULAR FILTRATION RATE > 60.0 ML/MIN; Glucose 128 mg/dL (74-106); SGOT/AST 45 U/L (17-59); SGPT/ALT 29 U/L (0-50); SODIUM 137 mmol/L (137-145)
[2021-12-02 16:31] VITALS: BP 131/75; PULSE 80; O2SAT 93
[2021-12-02] MEDS ORDERED: Zofran 4 MG/2 ML VIAL IV PRN (16:40)
[2021-12-02 16:54] LABS: INFLUENZA A NEGATIVE (NEGATIVE); INFLUENZA B NEGATIVE (NEGATIVE); RESPIRATORY SYNCTIAL VIRUS NEGATIVE (Negative); SARS-CoV-2 Xpert Express NEGATIVE (NEGATIVE)
--- NOTE | 2021-12-02 17:15 | XRAY ---
Indication: Low oxygenation. Status post cholecystectomy earlier today. Pulmonary embolus. Multiple contiguous axial images obtained through the chest using 80 cc Isovue 370 contrast and PE protocol. Comparison: None Good opacification of the pulmonary arteries to include the lobar and segmental branches. No pulmonary embolus. Heart not enlarged. Aorta is moderately arteriosclerotic without aneurysm/dissection. Small subcarinal and bilateral hilar calcified nodes. No pathologic mediastinal/hilar lymphadenopathy. Lungs demonstrates mild pulmonary emphysema, mild scattered fibrosis/scarring, and mild bibasilar subsegmental atelectasis. A few bilateral calcified granulomas. No effusion or pneumothorax. Bony thorax intact with mild osteopenia, mild degenerative changes throughout spine, and old right 5/6 rib fractures. Limited upper abdomen demonstrates small free air, cholecystectomy clips, and small subcutaneous emphysema all presumably related to patient's surgery. Incidental mild diffuse fatty liver and tiny splenic calcified granulomas. Impression: 1. Negative pulmonary embolus. 2. Incidental pulmonary emphysema, scattered fibrosis/scarring, bibasilar subsegmental atelectasis, arteriosclerotic disease, fatty liver, chronic bony findings, and old granulomatous disease. 3. Upper abdomen postsurgical changes as detailed.
== END 2021-12-02 17:15 | disposition still patient (30) ==
LOC: SDC 07:51
PROVIDERS: ATTEND Surgery
DX: K82.8 Other specified diseases of gallbladder (principal); I25.10 Atherosclerotic heart disease of native coronary artery without angina pectoris; I10 Essential (primary) hypertension; Z20.828 Contact with and (suspected) exposure to other viral communicable diseases
CPT/HCPCS: 0241U; 36415; 47562; 71045; 71260; 80053; 85027; 93005; 94640; 99100; J1956; J2250; J2270; J2405; J2704; J3010; A9270-GY